=== PATIENT | female | born 1935 | race Caucasian/White ===

== ENCOUNTER 2020-04-23 13:11 | Inpatient (IN) | payer MEDICARE ==
[~2020-04-23] VITALS: Ht 157.5 cm; Wt 68.3 kg
[~2020-04-23 13:11] MED LIST: ECOT81TA5 PO; FOLI1TAB11 PO; LABE100T4 PO; LEVO100T5 PO; LORT5TAB PO; LOSA100T50 PO; MECL1CHW PO; NABU-53 PO; TIZA2CAP PO
[2020-04-23] MEDS ORDERED: TRAM50TA2 PO (13:40)
[2020-04-23] MEDS ORDERED: AMLO1TAB24 PO (13:40)
[2020-04-23] MEDS ORDERED: TIZA4TAB4 PO (13:40)
[2020-04-23] MEDS ORDERED: PRED20TA PO (13:40)
[2020-04-23] MEDS ORDERED: fentaNYL 100 MCG/2 ML INJECTION (J3010) IV ONE (14:55)
[2020-04-23 15:07] LABS: BASO % 0.2 % (0.0-1.0); EOS % 0.1 % (0.0-3.0); HEMATOCRIT 34.3 % (36.0-47.0); HEMOGLOBIN 11.6 g/dl (12.0-15.5); LYMPH % 7.8 % (24.0-44.0); MEAN CORPUSCULAR HEMOGLOBIN 33.6 pg (27.0-33.0); MEAN CORPUSCULAR HGB CONC 33.8 g/dl (32.0-36.5); MEAN CORPUSCULAR VOLUME 99.4 fl (80.0-96.0); MONO # 0.5 10^3/uL (0.0-0.8); MONO % 3.7 % (2.0-8.0); NEUTROPHILS # 11.2 10^3/uL (1.5-8.5); PLATELET COUNT, AUTOMATED 392 10^3/uL (150-450); RED BLOOD COUNT 3.45 10^6/uL (4.00-5.40); WHITE BLOOD COUNT 12.9 10^3/uL (4.0-10.0)
[2020-04-23 15:40] LABS: BLOOD UREA NITROGEN 22 MG/DL (7-18); CALCIUM LEVEL 9.3 MG/DL (8.8-10.2); CARBON DIOXIDE LEVEL 29 MEQ/L (21-32); CHLORIDE LEVEL 95 MEQ/L (98-107); CREATININE FOR GFR 0.67 MG/DL (0.55-1.30); GLOMERULAR FILTRATION RATE > 60.0 (>32); GLUCOSE, FASTING 125 MG/DL (70-100); SODIUM LEVEL 132 MEQ/L (136-145)
--- NOTE | 2020-04-23 17:12 | REP ---
INDICATION: intractable low back pain. COMPARISON: Comparison is made with a portable intraoperative radiograph of the lumbar spine from January 20, 2015.. TECHNIQUE: Sagittal and axial T1 and T2-weighted scans are acquired in the usual fashion with and without fat saturation. Sequences include spin echo, turbo spin-echo, and STIR imaging sequences. FINDINGS: Lumbar vertebral body heights are preserved. No lumbar vertebral fracture or collapse is seen. The tip of the conus medullaris is normal in position and appearance at T12-L1. No extra vertebral abnormality is observed. There is abnormal signal intensity in the right sacrum superiorly and in the right iliac crest consistent with insufficiency fractures. No bony destructive lesion is seen. Sagittal images demonstrate a healing nondisplaced fracture of the upper portion of the 2nd sacral segment in the midline as well. There is mild presacral edema associated with this. There are degenerative spondylosis changes in the lumbar spine moderate in degree. There is a degenerative L4-5 spondylolisthesis, grade 1, 3 mm. Alignment is otherwise normal. At L1-2, there is degenerative disc disease and diffuse disc bulging is noted. Canal size is borderline. Mild facet and ligamentum flavum hypertrophy is present. At L2-3, there is moderate central canal stenosis due to disc bulging diffusely, ligamentum flavum and facet hypertrophy. The midline AP dimension of the thecal sac at L2-3 is 4.9 mm. CSF signal is effaced from the thecal sac at this level on T2 weighted axial images. There is mild neural foraminal encroachment from disc bulging and facet hypertrophy bilaterally. At L3-4, a right-sided partial laminectomy defect is seen. There is diffuse disc bulging. No central canal stenosis is noted. There is mild bilateral neural foraminal encroachment from disc bulging and facet hypertrophy. Ligamentum flavum hypertrophy is noted on the left at L3-4. At L4-5, in addition to the above-mentioned grade 1 3 mm spondylolisthesis, there is diffuse disc bulging and I suspect a partial right laminectomy defect. Canal size is borderline. There is ligamentum flavum hypertrophy on the left and moderate left-sided facet hypertrophy is present. Neural foramina appear adequate. At L5-S1, there is facet hypertrophy and minimal central disc bulging. No other finding. There is a bone island on the left side of the L5 vertebral body. IMPRESSION: There are advanced degenerative spondylosis changes. Post laminectomy changes are noted on the right at L3-4 and L4-5. There is a moderate degree of central canal stenosis at L2-3. Neural foraminal narrowing is noted as above. These changes appear to be chronic. In addition, there is subacute finding of right sacral and right iliac insufficiency fractures with associated edema. There is a 2nd sacral fracture in the midline as well. <Electronically signed by Henrry Gerber > 04/23/20 [id number]
[2020-04-23] MEDS ORDERED: NORCO, ANEXSIA 5/325MG TABLET (HYDROcodone/ACETAMINOPHEN) PO PRN (18:00)
[2020-04-23] MEDS ORDERED: MOM 30ML SUSPENSION UDC PO PRN (18:00)
[2020-04-23] MEDS ORDERED: HYDR-3713 PO (18:01)
[2020-04-23] MEDS ORDERED: MECL-86 PO (18:01)
--- NOTE | 2020-04-23 18:26 | HPEPDOC ---
General Date of Admission 04/23/2020 Date of Service: Apr 23, 2020 Attending Physician: SUDHEER ALFONSO MD Chief Complaint The patient is a 85-year-old female admitted with a reason for visit of Back Pain. Source: Patient Exam Limitations: No limitations Timing/Duration: Getting worse Severity: Severe Associated Symptoms: Other (back pain) History of Present Illness 85 yo W with a history of severe degenerative disk disease s/p prior laminectomies, HTN, vertigo, hypothyroidism and chronic back pain who presented to the ED reporting 2 weeks of worsening lower back pain that started in her central lower back and has gotten worse to include R buttock pain now and PCP had attempted to treat it as sciatica with prednisone/tizanidine/norco without relief. In the ED she was hypertensive to 170s/80s, otherwise in no acute distress when supine at rest, breathing comfortably on room air. ED evaluation was notable for MRI of L spine that showed a subacute R sacral and R iliac insufficiency fracture with associated edema and a second sacral fracture in the midline as well. It also revealed advanced degenerative spondylosis changes, post laminectomy changes on the R at L3-4 and L4-5 with neural foraminal narrowing WBC was 12.9, keeping in mind recent prednisone, Hgb 11,6, platelets 392, Na 132, K 4, Cr 0.67 and TSH 1.36. Orthopedics was called by the ED and recommended medicine admission for pain control and PT evaluation and will consult for management of fractures. Home Medications Scheduled Amlodipine Besylate (Amlodipine Besylate) 5 Mg Tablet, 5 MG PO QHS, (Reported) Aspirin (Ecotrin) 81 Mg Tab, 81 MG PO DAILY, (Reported) Labetalol HCl (Labetalol HCl) 100 Mg Tab, 100 MG PO BID, (Reported) Levothyroxine Sodium (Levothyroxine Sodium) 100 Mcg Tab, 100 MCG PO DAILY, (Reported) Losartan Potassium (Losartan Potassium) 100 Mg Tab, 50 MG PO BID, (Reported) Nabumetone (Nabumetone) 750 Mg Tab, 750 MG PO BID, (Reported) Prednisone (Prednisone) 20 Mg Tablet, 40 MG PO DAILY, (Reported) Scheduled PRN Hydrocodone/Acetaminophen (Hydrocodone-Acetamin 5-325 mg) 1 Each Tablet, 1 TAB PO Q6H PRN for PAIN, (Reported) Meclizine HCl (Meclizine HCl) 25 Mg Tablet, 25 MG PO TID PRN for DIZZINESS, (Reported) Tizanidine HCl (Tizanidine HCl) 4 Mg Tablet, 4 MG PO Q4H PRN for MUSCLE SPASMS, (Reported) Tramadol HCl (Tramadol HCl) 50 Mg Tablet, 50 MG PO QID PRN for PAIN, (Reported) Allergies Coded Allergies: TAPE (Verified Allergy, Intermediate, SURGICAL TAPE - RASH, 01/17/15) Tfurxij-Bzo-Iya Reductase Inhibitor (Verified Adverse Reaction, Unknown, 04/23/20) muscle aches Past Medical History Medical History history of severe degenerative disk disease s/p prior laminectomies, HTN, joss tigo, hypothyroidism and chronic back pain. Surgical History prior right mastectomy lumbar laminectomies hernia repair hysterectomy Family History Significant Family History: No pertinent family hx Social History * Smoker: Denies Alcohol: Denies Drugs: denies Recent Travel/Sick Contacts: Denies: Recent travel, Recent sick contacts Psychosocial History: No pertinent psych hx Lives alone at home, daughters live close by, have been coming around more often recently due to the mobility challenges and pain. A-FIB/CHADSVASC A-FIB History Current/History of A-Fib/PAF?: No Current PO Anticoag Therapy: No Age/Risk Factor Scoring CHADSVASC: CHADSVASC Response (Comments) Value Age Risk Factor Age >/= 75 years old 2 Gender Risk Factor Female 1 Hx of CHF No 0 Hx of HTN Yes 1 Hx of Stroke/TIA/or VTE No 0 Hx of Diabetes No 0 Hx of Vascular Disease No 0 Total 4 Treatment Treatment ordered: NONE Reason Anticoagulant not given: Not indicated/[id number] Review of Systems Constitutional: Denies: Chills, Fever, Night Sweats Eyes: Denies: Pain, Vision change ENT: Denies: Head Aches, Ear Pain, Dysphagia Skin: Denies: Rash, Lesions, Breakdown Pulmonary: Denies: Dyspnea, Cough Cardiovascular: Denies: Chest Pain, Palpitations, Orthopnea, Paroxysmal Noc. Dyspnea, Lt Headedness Gastrointestinal: Denies: Nausea, Vomiting, Abdominal Pain, Diarrhea Genitourinary: Denies: Dysuria, Frequency, Incontinence, Retention Hematologic: Denies: Bruising, Bleeding Excessively Endocrine: Denies: Polydipsia, Polyphagia, Polyuria, Heat Intolerance, Cold Intolerance, Other Endocrine Sx Musculoskeletal: Reports: Back Pain (Lower back pain and now down the R buttock and R leg feels pain when she moves) Neurological: Denies: Weakness, Numbness, Change in speech, Confusion Psych: Reports: Mood Normal; Denies: Depression, Memory Issues Physical Examination General Exam: Positive: Alert, No Acute Distress Eye Exam: Positive: PERRLA, Conjunctiva & lids normal, EOMI; Negative: Sclera icteric ENT Exam: Positive: Atraumatic, Mucous membr. moist/pink, Pharynx Normal Neck Exam: Positive: Supple; Negative: JVD, thyromegaly Chest Exam: Positive: Clear to auscultation, Normal air movement Heart Exam: Positive: Rate Normal, Regular Rhythm, Normal S1, Normal S2; Negative: Murmurs, Rubs Abdomen Exam: Positive: Normal bowel sounds, Soft; Negative: Tenderness, Hepatospenomegaly Extremity Exam: Positive: Normal pulses; Negative: Clubbing, Cyanosis, Edema Skin Exam: Positive: Nl turgor and temperature; Negative: Breakdown, Lesion Neuro Exam: Positive: Normal Speech, Sensation Intact, Cranial Nerves 3-12 NL; Negative: Strength at 5/5 X4 ext (LLE 5/5 ,RLE is 5/5 at distally but exam is limited proximally due to back pain) Psych Exam: Positive: Mental status NL, Mood NL, Oriented x 3 Vital Signs Vital Signs Date Time Temp Pulse Resp B/P (MAP) Pulse Ox O2 Delivery O2 Flow Rate FiO2 04/23/20 17:51 81 96 04/23/20 17:50 16 170/80 (110) Room Air 04/23/20 16:51 98.2 Laboratory Data Labs 24H Laboratory Tests 2 04/23/20 14:42: Anion Gap 8, Glomerular Filtration Rate > 60.0, Calcium Level 9.3, Thyroid Stimulating Hormone (TSH) 1.360 04/23/20 14:48: Immature Granulocyte % (Auto) 1.2, Neutrophils (%) (Auto) 87.0H, Lymphocytes (%) (Auto) 7.8L, Monocytes (%) (Auto) 3.7, Eosinophils (%) (Auto) 0.1, Basophils (%) (Auto) 0.2, Neutrophils # (Auto) 11.2H, Lymphocytes # (Auto) 1.0L, Monocytes # (Auto) 0.5, Eosinophils # (Auto) 0.0, Basophils # (Auto) 0.0, Nucleated Red Blood Cells % (auto) 0.0 CBC/BMP Laboratory Tests 04/23/20 14:42 04/23/20 14:48 Assessment/Plan 85 yo W with a history of severe degenerative disk disease s/p prior laminectomies, HTN, vertigo, hypothyroidism and chronic back pain who presented to the ED reporting 2 weeks of worsening lower back pain that started in her central lower back and has gotten worse to include R buttock and found to have subacute R sacral and R iliac insufficiency fractures with associated edema and a second sacral fracture in the midline as well being admitted for pain control, ortho evaluation and safe discharge planning. PlanL Subacute R sacral and R iliac insufficiency fracture with associated edema and a second sacral fracture in the midline as well. -Bed rest until recs from orthopedics for PT/OT -Ortho consult -pain control with 1 norco Q4HP for moderate pain and 2 norco for severe pain Q8HP HTN: -continue home meds Hypothyroidism: -continue home synthroid Vertigo: -continue home meclizine DVT ppx: lovenox Plan / VTE VTE Prophylaxis Ordered?: Yes SUDHEER ALFONSO MD Apr 23, 2020 18:26
[2020-04-23] MEDS: NORCO, ANEXSIA 5/325MG TABLET (HYDROcodone/ACETAMINOPHEN) PO PRN (18:39)
[2020-04-23 18:50] LABS: RSV AMPLIFICATION NEGATIVE (NEGATIVE)
--- NOTE | 2020-04-23 19:44 | HPEPDOC ---
General Date of Admission Apr 23, 2020 at 18:00 Date of Service: Apr 23, 2020 Chief Complaint The patient is a 85-year-old female admitted with a reason for visit of Intractable Low Back Pain. History of Present Illness This 85-year-old female admitted 2 days history of increasing right lumbar spine pain. She also feels like she has some pain in the right knee. There is no obvious numbness or tingling that she reports. She still ambulatory. She normally walks with a walker. No change in her normal bowel or bladder habits. She urinates frequently but no loss of control. No perianal numbness. No weakness in her legs. No constitutional symptoms that she reports. She did have lumbar spine surgery 5 years ago but no difficulties related that. She is uncertain who her surgeon was but this was in [place] Home Medications Scheduled Amlodipine Besylate (Amlodipine Besylate) 5 Mg Tablet, 5 MG PO QHS, (Reported) Aspirin (Ecotrin) 81 Mg Tab, 81 MG PO DAILY, (Reported) Labetalol HCl (Labetalol HCl) 100 Mg Tab, 100 MG PO BID, (Reported) Levothyroxine Sodium (Levothyroxine Sodium) 100 Mcg Tab, 100 MCG PO DAILY, (Reported) Losartan Potassium (Losartan Potassium) 100 Mg Tab, 50 MG PO BID, (Reported) Nabumetone (Nabumetone) 750 Mg Tab, 750 MG PO BID, (Reported) Prednisone (Prednisone) 20 Mg Tablet, 40 MG PO DAILY, (Reported) Scheduled PRN Hydrocodone/Acetaminophen (Hydrocodone-Acetamin 5-325 mg) 1 Each Tablet, 1 TAB PO Q6H PRN for PAIN, (Reported) Meclizine HCl (Meclizine HCl) 25 Mg Tablet, 25 MG PO TID PRN for DIZZINESS, (Reported) Tizanidine HCl (Tizanidine HCl) 4 Mg Tablet, 4 MG PO Q4H PRN for MUSCLE SPASMS, (Reported) Tramadol HCl (Tramadol HCl) 50 Mg Tablet, 50 MG PO QID PRN for PAIN, (Reported) Allergies Coded Allergies: TAPE (Verified Allergy, Intermediate, SURGICAL TAPE - RASH, 01/17/15) Zukbsot-Nlo-Oya Reductase Inhibitor (Verified Adverse Reaction, Unknown, 04/23/20) muscle aches Past Medical History Medical History For full past medical history please see the hospitalist note A-FIB/CHADSVASC A-FIB History Current/History of A-Fib/PAF?: No Current PO Anticoag Therapy: Yes Physical Examination Other physical findings General Appearance: Well-nourished, well developed in no acute distress Orientation: Oriented to person, place and time. Mood / Affect: Calm Gait: Not assessed Coordination: normal Normal sensation and motor function to superficial and deep peroneal, tibial, anderson ral and saphenous nerves. Feet are warm and well perfused. Strong pedal pulses. Normal sensation 2/2 and strong motor function 5/5 from L2-S1. No perianal numbness. No steps or gallops the lumbar spine or at the sacrum or thoracic spine Incision appears normal No increased tone lower extremities Straight leg raise testing simply causes right knee pain on the right side negative on the left side. Some mild crepitus with knee range of motion testing. No pain of the hip with hip range of motion testing. Vital Signs Vital Signs Date Time Temp Pulse Resp B/P (MAP) Pulse Ox O2 Delivery O2 Flow Rate FiO2 04/23/20 18:39 16 04/23/20 17:51 81 96 04/23/20 17:50 170/80 (110) Room Air 04/23/20 16:51 98.2 Laboratory Data Labs 24H Laboratory Tests 2 04/23/20 14:42: Anion Gap 8, Glomerular Filtration Rate > 60.0, Calcium Level 9.3, Thyroid Stimulating Hormone (TSH) 1.360 04/23/20 14:48: Immature Granulocyte % (Auto) 1.2, Neutrophils (%) (Auto) 87.0H, Lymphocytes (%) (Auto) 7.8L, Monocytes (%) (Auto) 3.7, Eosinophils (%) (Auto) 0.1, Basophils (%) (Auto) 0.2, Neutrophils # (Auto) 11.2H, Lymphocytes # (Auto) 1.0L, Monocytes # (Auto) 0.5, Eosinophils # (Auto) 0.0, Basophils # (Auto) 0.0, Nucleated Red Blood Cells % (auto) 0.0 04/23/20 18:05: Coronavirus (COVID-19)(PCR) NEGATIVE, Influenza Type A (RT-PCR) NEGATIVE, Influenza Type B (RT-PCR) NEGATIVE, Respiratory Syncytial Virus (PCR) NEGATIVE CBC/BMP Laboratory Tests 04/23/20 14:42 04/23/20 14:48 Date of Service The patient was seen on 04/23/20. Assessment/Plan This 85-year-old female likely has some pain from a sacral insufficiency fracture as well as possibly increased pain from a pre-existing right-sided lumb ar radiculopathy. There is no acute role for surgical intervention in this case. I recommend pain management with the hospitalist service in conjunction with the pain service and follow up with a spine surgeon on an outpatient basis. I will not follow the patient while in hospital. I recommended weightbearing as tolerated mobilization as tolerated with physical therapy and occupational therapy departments and a walker as needed. Plan / VTE VTE Prophylaxis Ordered?: Yes Text Note Date of Service The patient was seen on 04/23/20. NOTE There are advanced degenerative spondylosis changes. Post laminectomy changes are noted on the right at L3-4 and L4-5. There is a moderate degree of central canal stenosis at L2-3. Neural foraminal narrowing is noted as above. These changes appear to be chronic. In addition, there is subacute finding of right sacral and right iliac insufficiency fractures with associated edema. There is a 2nd sacral fracture in the midline as well. MARSHA WARREN MD Apr 23, 2020 19:44
[2020-04-23] MEDS ORDERED: LABETALOL 100MG TAB PO ONE (19:50)
[2020-04-23] MEDS ORDERED: MORPHINE 10 MG/ML 1ML VIAL (J2270) IV ONE (19:50)
[2020-04-23] MEDS ORDERED: cloNIDine 0.1MG TABLET PO ONE (19:50)
[2020-04-23] MEDS: NITROGLYCERIN 2% OINT 1 GM *U/D* PKT TOP SCH ×2 (20:14→23:50)
[2020-04-23 20:50] VITALS: BP 149/81
[2020-04-23] MEDS: LOSARTAN 50MG TABLET PO SCH (21:27)
[2020-04-23] MEDS: MECLIZINE 25 MG TABLET PO SCH (21:27)
[2020-04-23 23:42] VITALS: BP 109/68
[2020-04-23] MEDS: ACETAMINOPHEN TAB 650MG DOSE (2X325MG) PO PRN (23:43)
[2020-04-24] MEDS: NITROGLYCERIN 2% OINT 1 GM *U/D* PKT TOP SCH ×2 (03:34→07:50)
[2020-04-24] MEDS: NORCO, ANEXSIA 5/325MG TABLET (HYDROcodone/ACETAMINOPHEN) PO PRN ×2 (04:44→14:49)
[2020-04-24] MEDS: LEVOTHYROXINE 100MCG TABLET (0.1MG) PO SCH (05:26)
[2020-04-24 05:40] LABS: HEMOGLOBIN 11.2 g/dl (12.0-15.5); MEAN CORPUSCULAR HEMOGLOBIN 33.9 pg (27.0-33.0); MEAN CORPUSCULAR HGB CONC 33.9 g/dl (32.0-36.5); PLATELET COUNT, AUTOMATED 397 10^3/uL (150-450); WHITE BLOOD COUNT 13.2 10^3/uL (4.0-10.0)
[2020-04-24 06:00] VITALS: BP 148/82
[2020-04-24 06:00] LABS: CALCIUM LEVEL 8.4 MG/DL (8.8-10.2); CREATININE FOR GFR 0.99 MG/DL (0.55-1.30); GLOMERULAR FILTRATION RATE 56.8 (>32); POTASSIUM SERUM 3.4 MEQ/L (3.5-5.1)
[2020-04-24] MEDS ORDERED: MORPHINE 4 MG/ML 1ML VIAL/SYRINGE (J2270) IV PRN (07:25)
[2020-04-24] MEDS: LOSARTAN 50MG TABLET PO SCH ×2 (08:48→20:36)
[2020-04-24] MEDS: MECLIZINE 25 MG TABLET PO SCH ×3 (08:48→20:34)
[2020-04-24] MEDS: amLODIPine 5 MG TAB PO SCH (08:49)
[2020-04-24] MEDS: LABETALOL 100MG TAB PO SCH ×2 (08:49→20:37)
[2020-04-24] MEDS: ASPIRIN 81 MG CHEW TABLET PO SCH (08:50)
[2020-04-24] MEDS: ENOXAPARIN 40MG/0.4ML SYRINGE (J1650 PER 10MG) SC SCH (08:51)
--- NOTE | 2020-04-24 12:10 | IPNPDOC ---
Text Note Date of Service The patient was seen on 04/24/20. NOTE Subjective: -Severe pain overnight required morphine IV once -HTN overnight required labetalol and clonidine. Was likely also 2/2 pain. -Pain is present this morning but improved from last night. It is worst with ambulation Objective: General: Alert, No Acute Distress Eye: PERRLA, Conjunctiva & lids normal, EOMI, anicteric ENT: Atraumatic, Mucous membr. moist/pink, Pharynx Normal Neck: Supple, no JVD or palpable thyromegaly Chest: Clear to auscultation, Normal air movement Heart: Rate Normal, Regular Rhythm, Normal S1, Normal S2 without noted murmurs or gallops Abdomen: Normal bowel sounds,soft, NTND Extremities: Normal pulses, no edema Skin: Nl turgor and temperature, no breakdown or lesions noted Neuro: Normal Speech, Sensation Intact, Cranial Nerves 3-12 NL, lower back and R buttock pain with RLE straight leg raise, LLE 5/5 , RLE is otherwise 5/5 as well but limited by pain. Psych: Mental status NL, Mood NL, Oriented x 3 Laboratory Data: reviewed Assessment: 85 yo W with a history of severe degenerative disk disease s/p prior laminectomies, HTN, vertigo, hypothyroidism, lumbar radiculopathy w/ chronic back pain who presented to the ED reporting 2 weeks of worsening lower back pain that started in her central lower back and has gotten worse to include R buttock and found to have subacute R sacral and R iliac insufficiency fractures with associated edema and a second sacral fracture in the midline as well being admitted for pain control, ortho evaluation and safe discharge planning with ortho recommending pain management with pain service onboard, PT/OT and outpatient follow up with spine surgery. Plan: Subacute R sacral and R iliac insufficiency fracture with associated edema and a second sacral fracture in the midline as well. -Bed rest until recs from orthopedics for PT/OT -Ortho consulted --> No surgical intervention indicated at this time, recommended weightbearing as tolerated mobilization as tolerated with physical therapy and occupational therapy departments and a walker as needed as well evaluation by the pain service. -pain control with 1 norco Q4HP for moderate pain and 2 norco for severe pain Q8HP. Will also add morphine 4mg IV Q6HP for severe breakthrough pain. -pain clinic to assess her this afternoon, consulted. HTN: -continue home meds Hypothyroidism: -continue home synthroid Vertigo: -continue home meclizine DVT ppx: lovenox VS,Fishbone, I+O VS, Fishbone, I+O Laboratory Tests 04/23/20 14:42 04/23/20 14:48 04/24/20 05:12 04/24/20 05:13 Vital Signs Date Time Temp Pulse Resp B/P (MAP) Pulse Ox O2 Delivery O2 Flow Rate FiO2 04/24/20 06:00 97.6 72 17 148/82 (104) 98 Room Air I&O- Last 24 Hours up to 6 AM 04/24/20 06:00 Intake Total 150 ml Output Total 450 ml Balance -300 ml SUDHEER ALFONSO MD Apr 24, 2020 07:34
[2020-04-24 14:00] VITALS: BP 120/70
[2020-04-24 22:00] VITALS: BP 149/73
[2020-04-25] MEDS: ACETAMINOPHEN TAB 650MG DOSE (2X325MG) PO PRN (04:59)
[2020-04-25] MEDS: LEVOTHYROXINE 100MCG TABLET (0.1MG) PO SCH (04:59)
[2020-04-25 06:00] VITALS: BP 160/78
[2020-04-25 06:42] LABS: HEMATOCRIT 35.3 % (36.0-47.0); HEMOGLOBIN 11.7 g/dl (12.0-15.5); MEAN CORPUSCULAR HGB CONC 33.1 g/dl (32.0-36.5); MEAN CORPUSCULAR VOLUME 99.4 fl (80.0-96.0); PLATELET COUNT, AUTOMATED 433 10^3/uL (150-450); RED BLOOD COUNT 3.55 10^6/uL (4.00-5.40); WHITE BLOOD COUNT 12.4 10^3/uL (4.0-10.0)
[2020-04-25 07:02] LABS: BLOOD UREA NITROGEN 22 MG/DL (7-18); CALCIUM LEVEL 8.8 MG/DL (8.8-10.2); CARBON DIOXIDE LEVEL 28 MEQ/L (21-32); CHLORIDE LEVEL 99 MEQ/L (98-107); CREATININE FOR GFR 0.64 MG/DL (0.55-1.30); GLOMERULAR FILTRATION RATE > 60.0 (>32); GLUCOSE, FASTING 97 MG/DL (70-100); POTASSIUM SERUM 3.8 MEQ/L (3.5-5.1); SODIUM LEVEL 134 MEQ/L (136-145)
[2020-04-25 08:54] VITALS: BP 160/78
[2020-04-25] MEDS: ENOXAPARIN 40MG/0.4ML SYRINGE (J1650 PER 10MG) SC SCH (08:54)
[2020-04-25] MEDS: LOSARTAN 50MG TABLET PO SCH (08:54)
[2020-04-25] MEDS: LABETALOL 100MG TAB PO SCH (08:54)
[2020-04-25] MEDS: MECLIZINE 25 MG TABLET PO SCH (08:54)
[2020-04-25] MEDS: ASPIRIN 81 MG CHEW TABLET PO SCH (08:54)
[2020-04-25] MEDS: amLODIPine 5 MG TAB PO SCH (08:54)
[2020-04-25] MEDS ORDERED: NABUMETONE 750 MG PO SCH (09:00)
--- NOTE | 2020-04-26 00:42 | DS.PDOC ---
Discharge Summary General Date of Admission Apr 23, 2020 at 18:00 Date of Discharge 04/25/20 Discharge Summary PROCEDURES PERFORMED DURING STAY: [None]. DISCHARGE DIAGNOSES: Right Sacral superior vertebral fracture and right iliac crest insufficiency fracture Second Sacral vertebral fracture. 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 HOSPITAL COURSE: 85 yo W with a history of severe degenerative disc disease s/p prior laminectomies, HTN, vertigo, hypothyroidism, lumbar radiculopathy w/ chronic back pain who presented to the ED reporting 2 weeks of worsening lower back pain that started in her central lower back and has gotten worse to include R buttock and found to have subacute R sacral and R iliac insufficiency fractures with associated edema and a second sacral fracture in the midline as well being admitted for pain control, ortho evaluation and safe discharge planning with ortho recommending pain management with pain service onboard, PT/OT and outpatient follow up with spine surgery. Subacute R sacral and R iliac insufficiency fracture with associated edema and a second sacral fracture in the midline as well. Ortho consulted --> No surgical intervention indicated at this time, recommended weightbearing as tolerated mobilization as tolerated with physical therapy and occupational therapy departments and a walker as needed as well evaluation by the pain service. pain control with norco and tramadol pain clinic referral on discharge Continue PT/OT HTN: continue home meds Hypothyroidism: continue home synthroid Vertigo: continue home meclizine Chronic Low back pain with right lumber radiculopathy and spinal stenosis. h/o laminectomy in the past referral to spinal surgeon as outpatient DISCHARGE MEDICATIONS: Please see below. ALLERGIES: Please see below. PHYSICAL EXAMINATION ON DISCHARGE: VITAL SIGNS: Please see below. General: Alert, No Acute Distress Eye: PERRLA, Conjunctiva & lids normal, EOMI, anicteric ENT: Atraumatic, Mucous membr. moist/pink, Pharynx Normal Neck: Supple, no JVD or palpable thyromegaly Chest: Clear to auscultation, Normal air movement Heart: Rate Normal, Regular Rhythm, Normal S1, Normal S2 without noted murmurs or gallops Abdomen: Normal bowel sounds,soft, NTND Extremities: Normal pulses, no edema Skin: Nl turgor and temperature, no breakdown or lesions noted Neuro: Normal Speech, Sensation Intact, Cranial Nerves 3-12 NL, lower back and R buttock pain with RLE straight leg raise, LLE 5/5 , RLE is otherwise 5/5 as well but limited by pain. Psych: Mental status NL, Mood NL, Oriented x 3 LABORATORY DATA: Please see below. IMAGING: Lumber MRI: There is abnormal signal intensity in the right sacrum superiorly and in the r ight iliac crest consistent with insufficiency fractures. No bony destructive lesion is seen. Sagittal images demonstrate a healing nondisplaced fracture of the upper portion of the 2nd sacral segment in the midline as well. There is mild presacral edema associated with this. Impression: There are advanced degenerative spondylosis changes. Post laminectomy changes are noted on the right at L3-4 and L4-5. There is a moderate degree of central canal stenosis at L2-3. Neural foraminal narrowing is noted as above. These changes appear to be chronic. In addition, there is subacute finding of right sacral and right iliac insufficiency fractures with associated edema. There is a 2nd sacral fracture in the midline as well. ACTIVITY: [As tolerated]. DIET: As tolerated DISPOSITION: 70 Xfer Other. DISCHARGE INSTRUCTIONS: Pain clinic referral after discharge from Rehab. Spinal surgeon referral as outpatient. DISCHARGE CONDITION: [Stable]. TIME SPENT ON DISCHARGE: 35 minutes. Vital Signs/I&Os Vital Signs Date Time Temp Pulse Resp B/P (MAP) Pulse Ox O2 Delivery O2 Flow Rate FiO2 04/25/20 08:54 74 160/78 04/25/20 06:00 98.0 18 96 Room Air I&O- Last 24 Hours up to 6 AM 04/25/20 07:00 Intake Total 1590 ml Output Total 1000 ml Balance 590 ml Laboratory Data Labs 24H Laboratory Tests 2 04/25/20 05:42: Nucleated Red Blood Cells % (auto) 0.0, Anion Gap 7L, Glomerular Filtration Rate > 60.0, Calcium Level 8.8 CBC/BMP Laboratory Tests 04/25/20 05:42 Discharge Medications Scheduled Amlodipine Besylate (Amlodipine Besylate) 5 Mg Tablet, 5 MG PO QHS, (Reported) Aspirin (Ecotrin) 81 Mg Tab, 81 MG PO DAILY, (Reported) Labetalol HCl (Labetalol HCl) 100 Mg Tab, 100 MG PO BID, (Reported) Levothyroxine Sodium (Levothyroxine Sodium) 100 Mcg Tab, 100 MCG PO DAILY, ( Reported) Losartan Potassium (Losartan Potassium) 100 Mg Tab, 50 MG PO BID, (Reported) Nabumetone (Nabumetone) 750 Mg Tab, 750 MG PO BID, (Reported) Prednisone (Prednisone) 20 Mg Tablet, 40 MG PO DAILY, (Reported) Scheduled PRN Hydrocodone/Acetaminophen (Hydrocodone-Acetamin 5-325 mg) 1 Each Tablet, 1 TAB PO Q6H PRN for PAIN, (Reported) Meclizine HCl (Meclizine HCl) 25 Mg Tablet, 25 MG PO TID PRN for DIZZINESS, (Reported) Tizanidine HCl (Tizanidine HCl) 4 Mg Tablet, 4 MG PO Q4H PRN for MUSCLE SPASMS, (Reported) Tramadol HCl (Tramadol HCl) 50 Mg Tablet, 50 MG PO QID PRN for PAIN, (Reported) Allergies Coded Allergies: TAPE (Verified Allergy, Intermediate, SURGICAL TAPE - RASH, 01/17/15) Mngejpn-Nkg-Mtj Reductase Inhibitor (Verified Adverse Reaction, Unknown, 04/23/20) muscle aches DEMETRIUS ALEXANDRE MD Apr 26, 2020 00:42
== END 2020-04-25 14:30 | disposition home or self-care (01) | DRG 544 ==
LOC: M ED 13:11 → M ED INP 18:00 → ENRESERV 19:13 → M MS5PR 20:16 → M ED INP 20:32 → M MS5PR 20:54
PROVIDERS: ADMIT Internal Medicine; ATTEND Internal Medicine Nephrology
DX: M84.454A Pathological fracture, pelvis, initial encounter for fracture (principal); M54.16 Radiculopathy, lumbar region; I10 Essential (primary) hypertension; R42 Dizziness and giddiness; Z79.899 Other long term (current) drug therapy; Z79.82 Long term (current) use of aspirin; Z88.8 Allergy status to other drugs, medicaments and biological substances; E03.9 Hypothyroidism, unspecified

== ENCOUNTER 2020-04-25 10:47 | Inpatient (IN) | payer MEDICARE ==
[~2020-04-25] VITALS: Ht 157.5 cm; Wt 69.5 kg
[~2020-04-25 10:47] MED LIST changes: +AMLO1TAB24 PO; +HYDR-3713 PO; +MECL-86 PO; +PRED20TA PO; +TIZA4TAB4 PO; +TRAM50TA2 PO
[2020-04-25 14:20] VITALS: BP 150/75
[2020-04-25] MEDS ORDERED: traMADol 50 MG TAB PO PRN (16:30)
[2020-04-25] MEDS ORDERED: PILL CUTTER 1 EACH XX PRN (16:55)
[2020-04-25 20:00] VITALS: BP 160/80
[2020-04-25] MEDS: SENNA 8.6 MG TAB (SENOKOT) PO SCH (20:16)
[2020-04-25] MEDS: DOCUSATE SODIUM 100MG CAPSULE PO SCH (20:16)
[2020-04-25] MEDS: MECLIZINE 25 MG TABLET PO SCH (20:16)
[2020-04-25] MEDS: ACETAMINOPHEN 500 MG TAB PO SCH (20:16)
[2020-04-25] MEDS: LABETALOL 100MG TAB PO SCH (20:17)
[2020-04-25] MEDS: LOSARTAN 50MG TABLET PO SCH (20:17)
[2020-04-25] MEDS: NABUMETONE 750 MG PO SCH (20:17)
[2020-04-25] MEDS: REMEDY PHYTOPLEX Z-GUARD PASTE 113GM TUBE (FROM STOREROOM PRODUCT) TOP SCH (20:19)
[2020-04-26] MEDS: LEVOTHYROXINE 100MCG TABLET (0.1MG) PO SCH (05:55)
[2020-04-26 06:00] VITALS: BP 190/93
[2020-04-26 06:03] LABS: BASO # 0.1 10^3/uL (0.0-0.2); BASO % 0.5 % (0.0-1.0); EOS # 0.3 10^3/uL (0.0-0.5); HEMATOCRIT 33.9 % (36.0-47.0); HEMOGLOBIN 11.6 g/dl (12.0-15.5); LYMPH # 2.5 10^3/uL (1.5-5.0); MEAN CORPUSCULAR HEMOGLOBIN 34.3 pg (27.0-33.0); MEAN CORPUSCULAR HGB CONC 34.2 g/dl (32.0-36.5); MEAN CORPUSCULAR VOLUME 100.3 fl (80.0-96.0); MONO # 1.2 10^3/uL (0.0-0.8); MONO % 10.3 % (2.0-8.0); NEUTROPHILS # 6.9 10^3/uL (1.5-8.5); NEUTROPHILS % 62.2 % (36.0-66.0); PLATELET COUNT, AUTOMATED 429 10^3/uL (150-450); RED BLOOD COUNT 3.38 10^6/uL (4.00-5.40); WHITE BLOOD COUNT 11.1 10^3/uL (4.0-10.0)
[2020-04-26 06:11] VITALS: BP 182/94
[2020-04-26] MEDS: LOSARTAN 50MG TABLET PO SCH ×2 (06:24→20:55)
[2020-04-26] MEDS: LABETALOL 100MG TAB PO SCH ×2 (06:24→20:55)
[2020-04-26 06:27] LABS: ALT/SGPT 19 U/L (12-78); BILIRUBIN,TOTAL 0.4 MG/DL (0.2-1.0); BLOOD UREA NITROGEN 19 MG/DL (7-18); CALCIUM LEVEL 8.7 MG/DL (8.8-10.2); CARBON DIOXIDE LEVEL 29 MEQ/L (21-32); CHLORIDE LEVEL 101 MEQ/L (98-107); CREATININE FOR GFR 0.62 MG/DL (0.55-1.30); GLOMERULAR FILTRATION RATE > 60.0 (>32); GLUCOSE, FASTING 102 MG/DL (70-100); POTASSIUM SERUM 3.6 MEQ/L (3.5-5.1); SODIUM LEVEL 136 MEQ/L (136-145); TOTAL PROTEIN 6.6 GM/DL (6.4-8.2)
[2020-04-26] MEDS ORDERED: amLODIPine 5 MG TAB PO ONE (06:35)
[2020-04-26] MEDS: amLODIPine 5 MG TAB PO SCH ×2 (06:38→09:20)
[2020-04-26] MEDS ORDERED: predniSONE 20 MG TAB PO SCH (09:00)
[2020-04-26] MEDS: PANTOPRAZOLE 40MG TAB (PROTONIX) PO SCH (09:13)
[2020-04-26] MEDS: DOCUSATE SODIUM 100MG CAPSULE PO SCH ×2 (09:13→20:54)
[2020-04-26] MEDS: ASPIRIN 81MG ENTERIC TABLET PO SCH (09:13)
[2020-04-26] MEDS: ACETAMINOPHEN 500 MG TAB PO SCH ×3 (09:13→20:56)
[2020-04-26] MEDS: ENOXAPARIN 40MG/0.4ML SYRINGE (J1650 PER 10MG) SC SCH (09:14)
[2020-04-26] MEDS: MECLIZINE 25 MG TABLET PO SCH ×3 (09:14→20:55)
[2020-04-26] MEDS: NABUMETONE 750 MG PO SCH ×2 (09:14→20:57)
[2020-04-26] MEDS: REMEDY PHYTOPLEX Z-GUARD PASTE 113GM TUBE (FROM STOREROOM PRODUCT) TOP SCH ×3 (09:15→20:57)
[2020-04-26] MEDS: **hydrALAZINE HCL** 25 MG TAB PO SCH ×3 (09:20→20:55)
[2020-04-26] MEDS ORDERED: traMADol 50 MG TAB PO PRN (10:50)
--- NOTE | 2020-04-26 10:51 | HPEPDOC ---
Bankruptcy Attorney Note DATE OF ADMISSION: 04-25-20 DATE OF SERVICE: 04-26-20 TIME OF ADMISSION: Please refer to physician's admission order. SOURCE OF ADMISSION INFORMATION: [facility] record and patient CHIEF COMPLAINT: sacral fracture HISTORY OF PRESENT ILLNESS: 85F pmh HTN, vertigo, hypothyroidism, chronic low back pain s/p laminectomies being treated for sciatica by her PCP with steroids, muscle relaxants, and norco presented to [facility] ED on 04-23-20 qith difficulty walking and worsening low back and buttock pain. Lumbar MRI was done, showing, There are advanced degenerative spondylosis changes. Post laminectomy changes are noted on the right at L3-4 and L4-5. There is a moderate degree of central canal stenosis at L2-3. Neural foraminal narrowing is noted as above. These changes appear to be chronicsubacute finding of right sacral and right iliac insufficiency fractures with associated edema. There is a 2nd sacral fracture in the midline as well. She was evaluated by orthopedics who recommended follow-up with the outpatient spine surgeon and pain clinic. She had leukocytosis likely due to steroid use, anemia, and elevated blood pressures. She was evaluated by therapy, noted to have impairments in mobility and ADLs and deemed medically appropriate for discharge to ARU on 04-25-20. REVIEW OF SYSTEMS: The following is a completed review of systems and has been reviewed. Review of systems otherwise unremarkable. PAIN: Patient self reports right buttock pain EYES: No recent vision changes EARS, NOSE, & THROAT: No throat pain, or dysphagia, or rhinorrhea CARDIOVASCULAR: Denies chest pain or palpitations PULMONARY: Denies shortness of breath GASTROINTESTINAL: Denies constipation/diarrhea GENITOURINARY:denies dysuria MUSCULOSKELETAL: RLE weakness NEUROLOGICAL:denies tremor or paresthesias HEMATOLOGICAL: denies easy bruising SKIN: denies rash PSYCHIATRIC: Unremarkable All other review of systems found to be negative. PAST MEDICAL HISTORY: as per HPI PAST SURGICAL HISTORY: Right mastectomy, lumbar laminectomies, hernia repair, hysterectomy ALLERGIES: Please see below. MEDICATIONS: Please see below. SOCIAL HISTORY: no etoh/illicit drugs/smoking DIET: low sodium PHYSICAL EXAMINATION: VITAL SIGNS: Please see below. GENERAL: Pleasant and cooperative. No acute distress. HEENT: PERRL. Extraocular movements intact. Clear conjunctiva CARDIOVASCULAR: Regular rate and rhythm. No murmurs, rubs, or gallops LUNGS: Clear to auscultation bilaterally. No wheezes. No rhonchi ABDOMEN: Soft, nontender, nondistended. Positive bowel sounds. Normal active bowel sounds NEUROLOGICAL: Alert and oriented times three. Cranial nerves II through XII grossly intact. Sensation grossly intact EXTREMITIES: 5\5 strength bilateral upper extremities. 4\5 strength right lower extremity. 4/5 strength in left lower extremity. LABORATORY DATA: Please see below. IMAGING: Imaging documentation personally reviewed by record. FUNCTIONAL STATUS: Premorbid: Independent with all activities of daily life as well as mobility On Admission: Min assist-contact guard for bed mobility, functional transfers, toileting, dressing GOALS: Mod-I ambulating household distance, functional transfers, toileting, bathing ASSESSMENT:85-year-old F with past medical history of chronic low back pain s/p laminectomies who presents status post sacral insufficiency fracture PLAN: 1. PT/OT advance mobility and ADLs, strengthen/stretch/maintain ROM all 4 limbs 2. CArdiac- hx of HTN- c/u BP meds, amlodipine and hydralazine added for better control -CAD c/u ASA -medicine consulted to assist in overall management 3. Resp- monitor for infection 4. Rheum- hx of RA on nabumetaone 5. Ortho- recently diagnosed sacral insufficiency fractures, will taper off steroids, c/u tylenol and tramadol prn -f/u pain clinic/spine surgeon 6. Neuro- hx of vertigo c/u meclizine 7. GI ppx- protonix 8. DVT ppx- lovenox 9. Endo- hypothyroidism- c/u synthroid 10. Dispo- tbd POST ADMISSION PHYSICIAN EVALUATION: Medical and functional status: Description of medical status, medical assessment: As above. Rehabilitation diagnosis and current and prior cold morbid medical conditions as above. Risk of complications and plans to mitigate them as above. Description of functional status current status is as above. Prior status as above. Status compared to preadmission: There are no clinically significant differences between the patient's current status and the information described on the preadmission screening document. Treatment plan anticipated: Treatment plan is as described above. Required disciplines including physical therapy, occupational therapy, others as noted above. Intensity of services: 3 hours a day, 6 days a week. Special considerations: There are no specific special or safety considerations that would likely preclude immediate implementation of an intensive rehabilitation program or subsequently influence the plan of care. ATTESTATION: Considering all the information above, it is my best judgment that this patient requires intensive rehabilitation therapy as described above and an inpatient hospital environment due to the complexity of nursing, medical, and rehabilitation needs required by the patient. Furthermore, this patient can reasonably be expected to participate in an benefit from an inpatient rehabi litation stay with an interdisciplinary team approach to the delivery of rehabilitation care under the direction and supervision of rehabilitation physician. PROGNOSIS: good ESTIMATED LENGTH OF STAY:10-14 days. PROJECTED DISCHARGE DESTINATION: Home with family support and any durable medical equipment required to increase functional safety and mobility. TIME SPENT COUNSELING AND COORDINATING INITIAL CARE: Greater than 70 minutes. Vital Signs Vital Sign - Last 24 Hours 04/25/20 04/25/20 04/25/20 04/26/20 14:20 20:00 20:17 06:00 Temp 98.0 97.5 97.8 Pulse 83 81 82 Resp 20 18 19 B/P (MAP) 150/75 (100) 160/80 (106) 160/80 190/93 (125) Pulse Ox 97 94 93 O2 Delivery Room Air Room Air Room Air 04/26/20 04/26/20 04/26/20 04/26/20 06:11 06:24 06:38 09:20 Pulse 82 82 84 B/P (MAP) 182/94 (123) 182/94 182/94 177/82 04/26/20 09:20 B/P (MAP) 177/82 Laboratory Data CBC/BMP Laboratory Tests 04/26/20 05:51 Labs 24H Laboratory Tests 2 04/26/20 05:51: Immature Granulocyte % (Auto) 2.0, Neutrophils (%) (Auto) 62.2, Lymphocytes (%) (Auto) 22.0L, Monocytes (%) (Auto) 10.3H, Eosinophils (%) (Auto) 3.0, Basophils (%) (Auto) 0.5, Neutrophils # (Auto) 6.9, Lymphocytes # (Auto) 2.5, Monocytes # (Auto) 1.2H, Eosinophils # (Auto) 0.3, Basophils # (Auto) 0.1, Nucleated Red Blood Cells % (auto) 0.0, Anion Gap 6L, Glomerular Filtration Rate > 60.0, Calcium Level 8.7L, Total Bilirubin 0.4, Aspartate Amino Transf (AST/SGOT) 10, Alanine Aminotransferase (ALT/SGPT) 19, Alkaline Phosphatase 150H, Total Protein 6.6, Albumin 3.0L, Albumin/Globulin Ratio 0.8L Home Medications Scheduled Amlodipine Besylate (Amlodipine Besylate) 5 Mg Tablet, 5 MG PO QHS, (Reported) Aspirin (Ecotrin) 81 Mg Tab, 81 MG PO DAILY, (Reported) Labetalol HCl (Labetalol HCl) 100 Mg Tab, 100 MG PO BID, (Reported) Levothyroxine Sodium (Levothyroxine Sodium) 100 Mcg Tab, 100 MCG PO DAILY, (Reported) Losartan Potassium (Losartan Potassium) 100 Mg Tab, 50 MG PO BID, (Reported) Nabumetone (Nabumetone) 750 Mg Tab, 750 MG PO BID, (Reported) Prednisone (Prednisone) 20 Mg Tablet, 40 MG PO DAILY, (Reported) Scheduled PRN Hydrocodone/Acetaminophen (Hydrocodone-Acetamin 5-325 mg) 1 Each Tablet, 1 TAB PO Q6H PRN for PAIN, (Reported) Meclizine HCl (Meclizine HCl) 25 Mg Tablet, 25 MG PO TID PRN for DIZZINESS, (Reported) Tizanidine HCl (Tizanidine HCl) 4 Mg Tablet, 4 MG PO Q4H PRN for MUSCLE SPASMS, (Reported) Tramadol HCl (Tramadol HCl) 50 Mg Tablet, 50 MG PO QID PRN for PAIN, (Reported) Allergies Coded Allergies: TAPE (Verified Allergy, Intermediate, SURGICAL TAPE - RASH, 01/17/15) [id number] Reductase Inhibitor (Verified Adverse Reaction, Unknown, ) muscle aches A-FIB/CHADSVASC A-FIB History Current/History of A-Fib/PAF?: No Current PO Anticoag Therapy: No MELANIE NUNO MD Apr 26, 2020 10:51
[2020-04-26] MEDS: traMADol 50 MG TAB PO SCH ×3 (12:08→20:54)
[2020-04-26] MEDS ORDERED: ENTER DRUG NAME HERE (PATIENT'S OWN MED) OU SCH (12:20)
--- NOTE | 2020-04-26 13:36 | IPNPDOC ---
Text Note Date of Service The patient was seen on 04/26/20. NOTE SUBJECTIVE: Continues to complain of low back pain and pain in her right butt ocks and back of the thigh. PHYSICAL EXAMINATION VITAL SIGNS: Please see below. General: Alert, No Acute Distress Eye: PERRLA, Conjunctiva & lids normal, EOMI, anicteric ENT: Atraumatic, Mucous membr. moist/pink, Pharynx Normal Neck: Supple, no JVD or palpable thyromegaly Chest: Clear to auscultation, Normal air movement Heart: Rate Normal, Regular Rhythm, Normal S1, Normal S2 without noted murmurs or gallops Abdomen: Normal bowel sounds,soft, NTND Extremities: Normal pulses, no edema Skin: Nl turgor and temperature, no breakdown or lesions noted Neuro: Normal Speech, Sensation Intact, Cranial Nerves 3-12 NL, lower back and R buttock pain with RLE straight leg raise, LLE 5/5 , RLE is otherwise 5/5 as well but limited by pain. Psych: Mental status NL, Mood NL, Oriented x 3 Labs and Radiology: Reviewed Assessment and Plan: 85 yo W with a history of severe degenerative disc disease s/p prior laminectomies, HTN, vertigo, hypothyroidism, lumbar radiculopathy w/ chronic back pain who presented to the ED on 04/23/20 reporting 2 weeks of worsening lower back pain that started in her central lower back and has gotten worse to include R buttock and found to have subacute R sacral and R iliac insufficiency fractures with associated edema and a second sacral fracture in the midline as well being admitted for pain control, ortho evaluation and safe discharge planning with ortho recommending pain management with pain service onboard, PT/OT and outpatient follow up with spine surgery. Patient was evaluated by PT/OT and felt to need continued rehab prior to DC home. Patient was transferred to ARU on 04/26/20 for continued rehab. Right Sacral superior vertebral insufficiency fracture + right iliac crest insufficiency fracture +Second Sacral vertebral fracture. Ortho consulted --> No surgical intervention indicated at this time, recommended weightbearing as tolerated mobilization as tolerated with physical therapy and occupational therapy departments and a walker as needed as well evaluation by the pain service. pain control with norco and tramadol, prednisone, tylenol and nabumetone. pain clinic referral on discharge Continue PT/OT as per ARU Lumber spinal stenosis L2-L3/Right lumber radiculopathy With Chronic Low back pain h/o laminectomy in the past referral to spinal surgeon as outpatient HTN: On amlodipine, labetelol and hydralazine Hypothyroidism: continue home synthroid Vertigo continue home meclizine VS,Fishbone, I+O VS, Fishbone, I+O Laboratory Tests 04/26/20 05:51 Vital Signs Date Time Temp Pulse Resp B/P (MAP) Pulse Ox O2 Delivery O2 Flow Rate FiO2 04/26/20 12:08 16 04/26/20 09:20 177/82 04/26/20 09:20 84 04/26/20 06:00 97.8 93 Room Air I&O- Last 24 Hours up to 6 AM 04/26/20 05:59 Intake Total 170 ml Balance 170 ml DEMETRIUS ALEXANDRE MD Apr 26, 2020 13:36
[2020-04-26 14:00] VITALS: BP 126/58
[2020-04-26] MEDS: POLYVINYL ALCOHOL OPHTH SOLN 15 ML(LIQUITEARS) OU SCH ×2 (16:13→20:56)
[2020-04-26 20:00] VITALS: BP 146/74
[2020-04-26] MEDS: SENNA 8.6 MG TAB (SENOKOT) PO SCH (20:54)
[2020-04-27] MEDS: **hydrALAZINE HCL** 25 MG TAB PO SCH ×4 (01:56→21:04)
[2020-04-27 06:00] VITALS: BP 157/86
[2020-04-27 06:09] LABS: BASO % 0.3 % (0.0-1.0); EOS # 0.2 10^3/uL (0.0-0.5); EOS % 1.4 % (0.0-3.0); HEMATOCRIT 32.6 % (36.0-47.0); LYMPH # 3.4 10^3/uL (1.5-5.0); LYMPH % 25.7 % (24.0-44.0); MEAN CORPUSCULAR HEMOGLOBIN 33.4 pg (27.0-33.0); MEAN CORPUSCULAR HGB CONC 33.7 g/dl (32.0-36.5); MEAN CORPUSCULAR VOLUME 99.1 fl (80.0-96.0); MONO # 1.3 10^3/uL (0.0-0.8); MONO % 9.5 % (2.0-8.0); NEUTROPHILS # 8.2 10^3/uL (1.5-8.5); NEUTROPHILS % 61.7 % (36.0-66.0); PLATELET COUNT, AUTOMATED 426 10^3/uL (150-450); RED BLOOD COUNT 3.29 10^6/uL (4.00-5.40); WHITE BLOOD COUNT 13.3 10^3/uL (4.0-10.0)
[2020-04-27 06:27] LABS: BLOOD UREA NITROGEN 22 MG/DL (7-18); CALCIUM LEVEL 8.7 MG/DL (8.8-10.2); CARBON DIOXIDE LEVEL 29 MEQ/L (21-32); CHLORIDE LEVEL 101 MEQ/L (98-107); CREATININE FOR GFR 0.74 MG/DL (0.55-1.30); GLOMERULAR FILTRATION RATE > 60.0 (>32); GLUCOSE, FASTING 99 MG/DL (70-100); POTASSIUM SERUM 3.5 MEQ/L (3.5-5.1); SODIUM LEVEL 136 MEQ/L (136-145)
[2020-04-27] MEDS: LEVOTHYROXINE 100MCG TABLET (0.1MG) PO SCH (06:27)
[2020-04-27] MEDS: ASPIRIN 81MG ENTERIC TABLET PO SCH (08:51)
[2020-04-27] MEDS: ACETAMINOPHEN 500 MG TAB PO SCH ×3 (08:51→21:03)
[2020-04-27] MEDS: MECLIZINE 25 MG TABLET PO SCH ×3 (08:52→21:00)
[2020-04-27] MEDS: amLODIPine 5 MG TAB PO SCH (08:52)
[2020-04-27] MEDS: PANTOPRAZOLE 40MG TAB (PROTONIX) PO SCH (08:53)
[2020-04-27] MEDS: LOSARTAN 50MG TABLET PO SCH ×2 (08:53→21:04)
[2020-04-27] MEDS: LABETALOL 100MG TAB PO SCH ×2 (08:53→21:02)
[2020-04-27] MEDS: DOCUSATE SODIUM 100MG CAPSULE PO SCH ×2 (08:53→21:00)
[2020-04-27] MEDS: NABUMETONE 750 MG PO SCH ×2 (08:54→20:59)
[2020-04-27] MEDS: ENOXAPARIN 40MG/0.4ML SYRINGE (J1650 PER 10MG) SC SCH (08:54)
[2020-04-27] MEDS: traMADol 50 MG TAB PO SCH ×3 (08:56→21:00)
[2020-04-27] MEDS: POLYVINYL ALCOHOL OPHTH SOLN 15 ML(LIQUITEARS) OU SCH ×2 (08:56→20:12)
[2020-04-27] MEDS: REMEDY PHYTOPLEX Z-GUARD PASTE 113GM TUBE (FROM STOREROOM PRODUCT) TOP SCH ×3 (08:57→21:00)
[2020-04-27] MEDS ORDERED: predniSONE 10 MG TAB PO ONE (09:00)
[2020-04-27 14:00] VITALS: BP 138/70
[2020-04-27 20:00] VITALS: BP 161/75
[2020-04-27] MEDS: SENNA 8.6 MG TAB (SENOKOT) PO SCH (20:59)
[2020-04-28 02:43] VITALS: BP 182/86
[2020-04-28] MEDS: **hydrALAZINE HCL** 25 MG TAB PO SCH ×4 (02:48→21:11)
[2020-04-28 05:00] VITALS: BP 192/84
[2020-04-28 05:24] VITALS: BP 190/90
[2020-04-28] MEDS: LEVOTHYROXINE 100MCG TABLET (0.1MG) PO SCH (05:55)
[2020-04-28] MEDS: amLODIPine 5 MG TAB PO SCH (05:56)
[2020-04-28] MEDS: LABETALOL 100MG TAB PO SCH ×2 (05:56→21:10)
[2020-04-28 08:22] VITALS: BP 144/86
[2020-04-28] MEDS: LOSARTAN 50MG TABLET PO SCH ×2 (08:24→21:10)
[2020-04-28] MEDS: ACETAMINOPHEN 500 MG TAB PO SCH ×3 (08:24→21:13)
[2020-04-28] MEDS: PANTOPRAZOLE 40MG TAB (PROTONIX) PO SCH (08:24)
[2020-04-28] MEDS: ENOXAPARIN 40MG/0.4ML SYRINGE (J1650 PER 10MG) SC SCH (08:24)
[2020-04-28] MEDS: MECLIZINE 25 MG TABLET PO SCH ×4 (08:25→21:00)
[2020-04-28] MEDS: ASPIRIN 81MG ENTERIC TABLET PO SCH (08:25)
[2020-04-28] MEDS: traMADol 50 MG TAB PO SCH ×3 (08:25→21:12)
[2020-04-28] MEDS: REMEDY PHYTOPLEX Z-GUARD PASTE 113GM TUBE (FROM STOREROOM PRODUCT) TOP SCH ×3 (08:26→21:00)
[2020-04-28] MEDS: DOCUSATE SODIUM 100MG CAPSULE PO SCH ×2 (08:26→21:09)
[2020-04-28] MEDS: NABUMETONE 750 MG PO SCH ×2 (08:26→21:09)
[2020-04-28] MEDS: POLYVINYL ALCOHOL OPHTH SOLN 15 ML(LIQUITEARS) OU SCH ×2 (08:26→21:13)
[2020-04-28] MEDS ORDERED: predniSONE 20 MG TAB PO ONE (09:00)
[2020-04-28 14:00] VITALS: BP 143/80
[2020-04-28 20:00] VITALS: BP 156/84
[2020-04-28] MEDS: SENNA 8.6 MG TAB (SENOKOT) PO SCH (21:10)
[2020-04-29 04:00] VITALS: BP 202/96
[2020-04-29] MEDS: **hydrALAZINE HCL** 25 MG TAB PO SCH ×4 (04:20→20:17)
[2020-04-29] MEDS: amLODIPine 5 MG TAB PO SCH (04:35)
[2020-04-29] MEDS: LABETALOL 100MG TAB PO SCH ×2 (04:35→20:17)
[2020-04-29 05:00] VITALS: BP 189/92
[2020-04-29 06:00] VITALS: BP 184/87
[2020-04-29] MEDS: LEVOTHYROXINE 100MCG TABLET (0.1MG) PO SCH (06:23)
[2020-04-29] MEDS: ENOXAPARIN 40MG/0.4ML SYRINGE (J1650 PER 10MG) SC SCH (08:31)
[2020-04-29] MEDS: ASPIRIN 81MG ENTERIC TABLET PO SCH (08:31)
[2020-04-29] MEDS: LOSARTAN 50MG TABLET PO SCH ×2 (08:31→20:17)
[2020-04-29] MEDS: PANTOPRAZOLE 40MG TAB (PROTONIX) PO SCH (08:31)
[2020-04-29] MEDS: ACETAMINOPHEN 500 MG TAB PO SCH ×3 (08:31→20:16)
[2020-04-29] MEDS: REMEDY PHYTOPLEX Z-GUARD PASTE 113GM TUBE (FROM STOREROOM PRODUCT) TOP SCH ×3 (08:32→20:17)
[2020-04-29] MEDS: NABUMETONE 750 MG PO SCH ×2 (08:32→20:19)
[2020-04-29] MEDS: traMADol 50 MG TAB PO SCH ×3 (08:32→20:18)
[2020-04-29] MEDS: POLYVINYL ALCOHOL OPHTH SOLN 15 ML(LIQUITEARS) OU SCH ×2 (08:32→20:17)
[2020-04-29] MEDS: MECLIZINE 25 MG TABLET PO SCH ×3 (08:40→20:15)
[2020-04-29] MEDS: DOCUSATE SODIUM 100MG CAPSULE PO SCH ×2 (08:40→20:15)
[2020-04-29] MEDS ORDERED: predniSONE 10 MG TAB PO ONE (09:00)
[2020-04-29 14:00] VITALS: BP 160/72
[2020-04-29 20:00] VITALS: BP 162/72
[2020-04-29] MEDS: SENNA 8.6 MG TAB (SENOKOT) PO SCH (20:15)
[2020-04-30] MEDS: **hydrALAZINE HCL** 25 MG TAB PO SCH ×3 (02:16→14:21)
[2020-04-30] MEDS: LEVOTHYROXINE 100MCG TABLET (0.1MG) PO SCH (05:59)
[2020-04-30 06:00] VITALS: BP 170/90
[2020-04-30 06:37] LABS: BASO # 0.1 10^3/uL (0.0-0.2); BASO % 0.5 % (0.0-1.0); EOS # 0.2 10^3/uL (0.0-0.5); EOS % 1.6 % (0.0-3.0); HEMATOCRIT 34.3 % (36.0-47.0); HEMOGLOBIN 11.5 g/dl (12.0-15.5); LYMPH # 2.6 10^3/uL (1.5-5.0); LYMPH % 23.2 % (24.0-44.0); MEAN CORPUSCULAR HEMOGLOBIN 33.8 pg (27.0-33.0); MEAN CORPUSCULAR HGB CONC 33.5 g/dl (32.0-36.5); MEAN CORPUSCULAR VOLUME 100.9 fl (80.0-96.0); MONO # 1.1 10^3/uL (0.0-0.8); MONO % 10.4 % (2.0-8.0); NEUTROPHILS # 6.9 10^3/uL (1.5-8.5); NEUTROPHILS % 62.8 % (36.0-66.0); PLATELET COUNT, AUTOMATED 449 10^3/uL (150-450)
[2020-04-30 07:05] LABS: BLOOD UREA NITROGEN 22 MG/DL (7-18); CALCIUM LEVEL 8.6 MG/DL (8.8-10.2); CARBON DIOXIDE LEVEL 28 MEQ/L (21-32); CHLORIDE LEVEL 102 MEQ/L (98-107); CREATININE FOR GFR 0.68 MG/DL (0.55-1.30); GLOMERULAR FILTRATION RATE > 60.0 (>32); GLUCOSE, FASTING 92 MG/DL (70-100); POTASSIUM SERUM 3.6 MEQ/L (3.5-5.1); SODIUM LEVEL 137 MEQ/L (136-145)
[2020-04-30] MEDS: LOSARTAN 50MG TABLET PO SCH ×2 (08:37→20:31)
[2020-04-30] MEDS: DOCUSATE SODIUM 100MG CAPSULE PO SCH ×2 (08:37→20:34)
[2020-04-30] MEDS: PANTOPRAZOLE 40MG TAB (PROTONIX) PO SCH (08:37)
[2020-04-30] MEDS: ACETAMINOPHEN 500 MG TAB PO SCH ×3 (08:37→20:33)
[2020-04-30] MEDS: MECLIZINE 25 MG TABLET PO SCH ×3 (08:37→20:42)
[2020-04-30] MEDS: POLYVINYL ALCOHOL OPHTH SOLN 15 ML(LIQUITEARS) OU SCH ×2 (08:38→20:34)
[2020-04-30] MEDS: ASPIRIN 81MG ENTERIC TABLET PO SCH (08:38)
[2020-04-30] MEDS: LABETALOL 100MG TAB PO SCH ×2 (08:38→20:31)
[2020-04-30] MEDS: amLODIPine 5 MG TAB PO SCH ×2 (08:38→20:32)
[2020-04-30] MEDS: ENOXAPARIN 40MG/0.4ML SYRINGE (J1650 PER 10MG) SC SCH (08:39)
[2020-04-30] MEDS: NABUMETONE 750 MG PO SCH ×2 (08:39→20:33)
[2020-04-30] MEDS: traMADol 50 MG TAB PO SCH (08:40)
[2020-04-30] MEDS ORDERED: predniSONE 5 MG TAB PO ONE (09:00)
[2020-04-30] MEDS: REMEDY PHYTOPLEX Z-GUARD PASTE 113GM TUBE (FROM STOREROOM PRODUCT) TOP SCH ×3 (09:00→20:35)
[2020-04-30 14:00] VITALS: BP 139/66
--- NOTE | 2020-04-30 15:44 | IPNPDOC ---
PM&R Progress Note DATE OF SERVICE: Apr 30, 2020 [employer] Progress Note Subjective: Patient reporting she felt dizzy this morning after taking oxycodone and it did not help her pain, she would like to try the tramadol again instead. REVIEW OF SYSTEMS: The following is a completed review of systems and has been reviewed. Review of systems otherwise unremarkable. PAIN: Patient self reports right buttock pain EYES: No recent vision changes EARS, NOSE, & THROAT: No throat pain, or dysphagia, or rhinorrhea CARDIOVASCULAR: Denies chest pain or palpitations PULMONARY: Denies shortness of breath GASTROINTESTINAL: Denies constipation/diarrhea GENITOURINARY:denies dysuria MUSCULOSKELETAL: RLE weakness NEUROLOGICAL:denies tremor or paresthesias HEMATOLOGICAL: denies easy bruising SKIN: denies rash PSYCHIATRIC: Unremarkable All other review of systems found to be negative. PHYSICAL EXAMINATION: VITAL SIGNS: Please see below. GENERAL: Pleasant and cooperative. No acute distress. HEENT: PERRL. Extraocular movements intact. Clear conjunctiva CARDIOVASCULAR: Regular rate and rhythm. No murmurs, rubs, or gallops LUNGS: Clear to auscultation bilaterally. No wheezes. No rhonchi ABDOMEN: Soft, nontender, nondistended. Positive bowel sounds. Normal active bowel sounds NEUROLOGICAL: Alert and oriented times three. Cranial nerves II through XII grossly intact. Sensation grossly intact EXTREMITIES: 5\5 strength bilateral upper extremities. 4\5 strength right lower extremity. 4/5 strength in left lower extremity. ASSESSMENT:85-year-old F with past medical history of chronic low back pain s/p laminectomies who presents status post sacral insufficiency fracture PLAN: 1. PT/OT advance mobility and ADLs, strengthen/stretch/maintain ROM all 4 limbs- ambulating with RW 2. CArdiac- hx of HTN- c/u BP meds, amlodipine and hydralazine added for better control -CAD c/u ASA -medicine consulted to assist in overall management 3. Resp- monitor for infection 4. Rheum- hx of RA on nabumetaone 5. Ortho- recently diagnosed sacral insufficiency fractures, tapering off steroids, c/u tylenol, c/u low dose cymbalta, patient did not toerate oxycodone, will switch back to tramadol -f/u pain clinic/spine surgeon 6. Neuro- hx of vertigo c/u meclizine 7. GI ppx- protonix 8. DVT ppx- lovenox 9. Endo- hypothyroidism- c/u synthroid 10. Dispo- tbd Allergies Coded Allergies: TAPE (Verified Allergy, Intermediate, SURGICAL TAPE - RASH, 01/17/15) Lsjicmf-[id number]-Eus Reductase Inhibitor (Verified Adverse Reaction, Unknown, 04/23/20) muscle aches Vital Signs Vital Signs Date Time Temp Pulse Resp B/P (MAP) Pulse Ox O2 Delivery O2 Flow Rate FiO2 04/30/20 14:21 128/70 04/30/20 14:00 97.9 97 18 97 Room Air Laboratory Data CBC/BMP Laboratory Tests 04/30/20 06:20 Labs 24H Laboratory Tests 2 04/30/20 06:20: Immature Granulocyte % (Auto) 1.5, Neutrophils (%) (Auto) 62.8, Lymphocytes (%) (Auto) 23.2L, Monocytes (%) (Auto) 10.4H, Eosinophils (%) (Auto) 1.6, Basophils (%) (Auto) 0.5, Neutrophils # (Auto) 6.9, Lymphocytes # (Auto) 2.6, Monocytes # (Auto) 1.1H, Eosinophils # (Auto) 0.2, Basophils # (Auto) 0.1, Nucleated Red Blood Cells % (auto) 0.0, Anion Gap 7L, Glomerular Filtration Rate > 60.0, Calcium Level 8.6L Current Medications Current Medications Current Medications Medications (Trade) Dose Ordered Sig/Jessica Route PRN Reason Start Time Stop Time Status Last Admin Dose Admin Acetaminophen (Tylenol Tab) 1,000 mg TID PO 04/25/20 21:00 04/30/20 08:37 Amlodipine Besylate (Norvasc) 5 mg BID PO 04/30/20 09:00 04/30/20 08:38 Amlodipine Besylate (Norvasc) 5 mg DAILY PO 04/26/20 09:00 04/30/20 08:18 DC 04/29/20 04:35 Artificial Tears (Akwa Tears) 1 drop BID OU 04/26/20 14:00 04/30/20 08:38 Aspirin (Ecotrin) 81 mg DAILY PO 04/26/20 09:00 04/30/20 08:38 Docusate Sodium (Colace) 100 mg BID PO 04/25/20 21:00 04/30/20 08:37 Enoxaparin Sodium (Lovenox) 40 mg DAILY SC 04/26/20 09:00 04/30/20 08:39 Home Med (Med Rec Complete!) ASDIRECTED XX 04/25/20 15:50 04/25/20 15:52 DC Hydralazine HCl (Apresoline) 25 mg Q6H PO 04/26/20 08:35 04/30/20 08:37 Labetalol HCl (Normodyne, Trandate) 100 mg BID PO 04/25/20 21:00 04/30/20 08:38 Levothyroxine Sodium (Synthroid) 100 mcg DAILY@06 PO 04/26/20 06:00 04/30/20 05:59 Losartan Potassium (Cozaar) 50 mg BID PO 04/25/20 21:00 04/30/20 08:37 Meclizine HCl (Antivert) 25 mg TID PO 04/25/20 21:00 04/30/20 08:37 Pantoprazole Sodium (Protonix) 40 mg DAILY PO 04/26/20 09:00 04/30/20 08:37 Patient Own Medication (Patient'S Own Med) Nabumetone 750mg TA... BID PO 04/25/20 21:00 04/30/20 08:39 Patient Own Medication (Patient'S Own Med) systane ultra eye drops... ASDIRECTED OU 04/26/20 12:20 04/26/20 12:41 DC Prednisone (Deltasone) 40 mg DAILY PO 04/26/20 09:00 04/26/20 14:12 DC 04/26/20 09:14 Senna (Senokot) 1 tab QHS PO 04/25/20 21:00 04/29/20 20:15 Tramadol HCl (Ultram) 25 mg Q4HP PRN PO MODERATE PAIN (PS 5-7) 04/25/20 16:30 04/26/20 10:52 DC Tramadol HCl (Ultram) 25 mg Q6HP PRN PO MODERATE PAIN (PS 5-7) 04/26/20 10:50 04/28/20 00:28 Tramadol HCl (Ultram) 25 mg TID PO 04/26/20 10:50 04/30/20 15:42 DC 04/30/20 08:40 Tramadol HCl (Ultram) 50 mg TID PO 04/30/20 16:00 MELANIE MALLORY MD Apr 30, 2020 15:44
[2020-04-30] MEDS ORDERED: traMADol 50 MG TAB PO SCH (16:00)
[2020-04-30] MEDS: oxyCODONE 5MG TAB PO SCH (16:00)
[2020-04-30] MEDS: DULoxetine 20 MG CAP (CYMBALTA) PO SCH (18:01)
[2020-04-30] MEDS: LIDOCAINE 5% (LIDODERM) PATCH TD SCH (18:02)
[2020-04-30 20:00] VITALS: BP 136/64
[2020-04-30 20:05] VITALS: BP 136/64
[2020-04-30] MEDS: SENNA 8.6 MG TAB (SENOKOT) PO SCH (20:30)
[2020-04-30] MEDS: **NOTE PATIENT COMMENT** MISC XX SCH (20:50)
[2020-05-01 00:17] VITALS: BP 141/76
[2020-05-01] MEDS: **hydrALAZINE HCL** 25 MG TAB PO SCH ×4 (00:33→18:36)
[2020-05-01] MEDS: LEVOTHYROXINE 100MCG TABLET (0.1MG) PO SCH (05:53)
[2020-05-01 06:00] VITALS: BP 159/83
[2020-05-01] MEDS: oxyCODONE 5MG TAB PO SCH (07:11)
[2020-05-01] MEDS: DOCUSATE SODIUM 100MG CAPSULE PO SCH ×2 (10:21→20:43)
[2020-05-01] MEDS: ENOXAPARIN 40MG/0.4ML SYRINGE (J1650 PER 10MG) SC SCH (10:21)
[2020-05-01] MEDS: LOSARTAN 50MG TABLET PO SCH ×2 (10:22→20:44)
[2020-05-01] MEDS: amLODIPine 5 MG TAB PO SCH ×2 (10:22→20:45)
[2020-05-01] MEDS: ASPIRIN 81MG ENTERIC TABLET PO SCH (10:22)
[2020-05-01] MEDS: DULoxetine 20 MG CAP (CYMBALTA) PO SCH (10:22)
[2020-05-01] MEDS: PANTOPRAZOLE 40MG TAB (PROTONIX) PO SCH (10:22)
[2020-05-01] MEDS: MECLIZINE 25 MG TABLET PO SCH ×3 (10:22→20:51)
[2020-05-01] MEDS: ACETAMINOPHEN 500 MG TAB PO SCH ×3 (10:23→20:43)
[2020-05-01] MEDS: LABETALOL 100MG TAB PO SCH ×2 (10:23→20:45)
[2020-05-01] MEDS: NABUMETONE 750 MG PO SCH ×2 (10:24→20:43)
[2020-05-01] MEDS: REMEDY PHYTOPLEX Z-GUARD PASTE 113GM TUBE (FROM STOREROOM PRODUCT) TOP SCH ×3 (10:25→20:46)
[2020-05-01] MEDS: LIDOCAINE 5% (LIDODERM) PATCH TD SCH (10:25)
[2020-05-01] MEDS: POLYVINYL ALCOHOL OPHTH SOLN 15 ML(LIQUITEARS) OU SCH ×2 (10:26→20:45)
--- NOTE | 2020-05-01 12:43 | IPNPDOC ---
PM&R Progress Note DATE OF SERVICE: Apr 30, 2020 [employer] Progress Note Subjective: Patient reporting tramadol is not helping her sacral pain and she would like to try an alternative medication. REVIEW OF SYSTEMS: The following is a completed review of systems and has been reviewed. Review of systems otherwise unremarkable. PAIN: Patient self reports right buttock pain EYES: No recent vision changes EARS, NOSE, & THROAT: No throat pain, or dysphagia, or rhinorrhea CARDIOVASCULAR: Denies chest pain or palpitations PULMONARY: Denies shortness of breath GASTROINTESTINAL: Denies constipation/diarrhea GENITOURINARY:denies dysuria MUSCULOSKELETAL: RLE weakness NEUROLOGICAL:denies tremor or paresthesias HEMATOLOGICAL: denies easy bruising SKIN: denies rash PSYCHIATRIC: Unremarkable All other review of systems found to be negative. PHYSICAL EXAMINATION: VITAL SIGNS: Please see below. GENERAL: Pleasant and cooperative. No acute distress. HEENT: PERRL. Extraocular movements intact. Clear conjunctiva CARDIOVASCULAR: Regular rate and rhythm. No murmurs, rubs, or gallops LUNGS: Clear to auscultation bilaterally. No wheezes. No rhonchi ABDOMEN: Soft, nontender, nondistended. Positive bowel sounds. Normal active bowel sounds NEUROLOGICAL: Alert and oriented times three. Cranial nerves II through XII grossly intact. Sensation grossly intact EXTREMITIES: 5\5 strength bilateral upper extremities. 4\5 strength right lower extremity. 4/5 strength in left lower extremity. ASSESSMENT:85-year-old F with past medical history of chronic low back pain s/p laminectomies who presents status post sacral insufficiency fracture PLAN: 1. PT/OT advance mobility and ADLs, strengthen/stretch/maintain ROM all 4 limbs-ambulating with RW 2. CArdiac- hx of HTN- c/u BP meds, amlodipine and hydralazine added for better control -CAD c/u ASA -medicine consulted to assist in overall management 3. Resp- monitor for infection 4. Rheum- hx of RA on nabumetaone 5. Ortho- recently diagnosed sacral insufficiency fractures, tapering off steroids, c/u tylenol, will star low dose cymbalta and trial of oxycodone as tra madol is not helping her pain -f/u pain clinic/spine surgeon 6. Neuro- hx of vertigo c/u meclizine 7. GI ppx- protonix 8. DVT ppx- lovenox 9. Endo- hypothyroidism- c/u synthroid 10. Dispo- tbd Allergies Coded Allergies: TAPE (Verified Allergy, Intermediate, SURGICAL TAPE - RASH, 01/17/15) Ggvycrh-[id number]-Jre Reductase Inhibitor (Verified Adverse Reaction, Unknown, 04/23/20) muscle aches Vital Signs Vital Signs Date Time Temp Pulse Resp B/P (MAP) Pulse Ox O2 Delivery O2 Flow Rate FiO2 05/01/20 10:23 78 159/83 05/01/20 07:11 18 05/01/20 06:00 96.9 95 Room Air Current Medications Current Medications Current Medications Medications (Trade) Dose Ordered Sig/Jessica Route PRN Reason Start Time Stop Time Status Last Admin Dose Admin Acetaminophen (Tylenol Tab) 1,000 mg TID PO 04/25/20 21:00 05/01/20 10:23 Amlodipine Besylate (Norvasc) 5 mg BID PO 04/30/20 09:00 05/01/20 10:22 Amlodipine Besylate (Norvasc) 5 mg DAILY PO 04/26/20 09:00 04/30/20 08:18 DC 04/29/20 04:35 Artificial Tears (Akwa Tears) 1 drop BID OU 04/26/20 14:00 05/01/20 10:26 Aspirin (Ecotrin) 81 mg DAILY PO 04/26/20 09:00 05/01/20 10:22 Docusate Sodium (Colace) 100 mg BID PO 04/25/20 21:00 05/01/20 10:21 Duloxetine HCl (Cymbalta) 20 mg DAILY PO 04/30/20 09:00 05/01/20 10:22 Enoxaparin Sodium (Lovenox) 40 mg DAILY SC 04/26/20 09:00 05/01/20 10:21 Home Med (Med Rec Complete!) ASDIRECTED XX 04/25/20 15:50 04/25/20 15:52 DC Hydralazine HCl (Apresoline) 25 mg Q6H PO 04/26/20 08:35 04/30/20 18:49 DC 04/30/20 08:37 Hydralazine HCl (Apresoline) 25 mg Q6H PO 05/01/20 00:00 05/01/20 05:53 Labetalol HCl (Normodyne, Trandate) 100 mg BID PO 04/25/20 21:00 05/01/20 10:23 Levothyroxine Sodium (Synthroid) 100 mcg DAILY@06 PO 04/26/20 06:00 05/01/20 05:53 Lidocaine (Lidoderm Patch) 1 patch DAILY TD 04/30/20 09:00 05/01/20 10:25 Losartan Potassium (Cozaar) 50 mg BID PO 04/25/20 21:00 05/01/20 10:22 Meclizine HCl (Antivert) 25 mg TID PO 04/25/20 21:00 05/01/20 10:22 Non-Formulary Medication ( See Comment Field Below ) REMOVE LIDODERM PATCH DAILY@21 XX 04/30/20 21:00 04/30/20 20:50 Oxycodone HCl (Roxicodone, Oxyir) 2.5 mg TID@0800,1200,1600 PO 04/30/20 16:00 05/01/20 11:00 DC 05/01/20 07:11 Pantoprazole Sodium (Protonix) 40 mg DAILY PO 04/26/20 09:00 05/01/20 10:22 Patient Own Medication (Patient'S Own Med) Nabumetone 750mg TA... BID PO 04/25/20 21:00 05/01/20 10:24 Patient Own Medication (Patient'S Own Med) systane ultra eye drops... ASDIRECTED OU 04/26/20 12:20 04/26/20 12:41 DC Prednisone (Deltasone) 40 mg DAILY PO 04/26/20 09:00 04/26/20 14:12 DC 04/26/20 09:14 Senna (Senokot) 1 tab QHS PO 04/25/20 21:00 04/30/20 20:30 Tramadol HCl (Ultram) 25 mg Q4HP PRN PO MODERATE PAIN (PS 5-7) 04/25/20 16:30 04/26/20 10:52 DC Tramadol HCl (Ultram) 25 mg Q6HP PRN PO MODERATE PAIN (PS 5-7) 04/26/20 10:50 04/30/20 16:49 DC 04/28/20 00:28 Tramadol HCl (Ultram) 25 mg TID PO 04/26/20 10:50 04/30/20 15:42 DC 04/30/20 08:40 Tramadol HCl (Ultram) 50 mg DAILY@0800,1200,1600 PO 05/01/20 12:00 Tramadol HCl (Ultram) 50 mg QHS PRN PO MODERATE PAIN (PS 5-7) 05/01/20 11:00 Tramadol HCl (Ultram) 50 mg TID PO 04/30/20 16:00 04/30/20 16:49 DC 04/30/20 15:58 MELANIE NUNO MD May 01, 2020 12:43
[2020-05-01] MEDS: traMADol 50 MG TAB PO SCH ×2 (13:39→18:36)
[2020-05-01 14:00] VITALS: BP 143/70
[2020-05-01 20:10] VITALS: BP 157/86
[2020-05-01] MEDS: SENNA 8.6 MG TAB (SENOKOT) PO SCH (21:35)
[2020-05-01] MEDS: **NOTE PATIENT COMMENT** MISC XX SCH (21:40)
[2020-05-02] VITALS (8 sets, daily range): BP systolic 128–189; BP diastolic 71–90
[2020-05-02] MEDS: LEVOTHYROXINE 100MCG TABLET (0.1MG) PO SCH (05:51)
[2020-05-02] MEDS: **hydrALAZINE HCL** 25 MG TAB PO SCH ×2 (05:51)
[2020-05-02 06:41] LABS: BASO % 0.4 % (0.0-1.0); EOS # 0.3 10^3/uL (0.0-0.5); HEMATOCRIT 31.7 % (36.0-47.0); HEMOGLOBIN 10.9 g/dl (12.0-15.5); LYMPH % 20.9 % (24.0-44.0); MEAN CORPUSCULAR HEMOGLOBIN 34.3 pg (27.0-33.0); MEAN CORPUSCULAR HGB CONC 34.4 g/dl (32.0-36.5); MEAN CORPUSCULAR VOLUME 99.7 fl (80.0-96.0); MONO # 0.9 10^3/uL (0.0-0.8); MONO % 9.3 % (2.0-8.0); NEUTROPHILS # 6.2 10^3/uL (1.5-8.5); NEUTROPHILS % 64.5 % (36.0-66.0); PLATELET COUNT, AUTOMATED 381 10^3/uL (150-450); RED BLOOD COUNT 3.18 10^6/uL (4.00-5.40); WHITE BLOOD COUNT 9.6 10^3/uL (4.0-10.0)
[2020-05-02 07:11] LABS: BLOOD UREA NITROGEN 16 MG/DL (7-18); CALCIUM LEVEL 8.5 MG/DL (8.8-10.2); CARBON DIOXIDE LEVEL 26 MEQ/L (21-32); CHLORIDE LEVEL 96 MEQ/L (98-107); CREATININE FOR GFR 0.55 MG/DL (0.55-1.30); GLOMERULAR FILTRATION RATE > 60.0 (>32); GLUCOSE, FASTING 94 MG/DL (70-100); POTASSIUM SERUM 3.4 MEQ/L (3.5-5.1); SODIUM LEVEL 129 MEQ/L (136-145)
[2020-05-02] MEDS: DOCUSATE SODIUM 100MG CAPSULE PO SCH ×2 (09:00→20:15)
[2020-05-02] MEDS: PANTOPRAZOLE 40MG TAB (PROTONIX) PO SCH (09:50)
[2020-05-02] MEDS: ASPIRIN 81MG ENTERIC TABLET PO SCH (09:50)
[2020-05-02] MEDS: LABETALOL 100MG TAB PO SCH ×2 (09:50→20:15)
[2020-05-02] MEDS: MECLIZINE 25 MG TABLET PO SCH ×3 (09:51→20:15)
[2020-05-02] MEDS: traMADol 50 MG TAB PO SCH ×3 (09:51→15:44)
[2020-05-02] MEDS: DULoxetine 20 MG CAP (CYMBALTA) PO SCH (09:51)
[2020-05-02] MEDS: LOSARTAN 50MG TABLET PO SCH ×2 (09:52→20:16)
[2020-05-02] MEDS: amLODIPine 5 MG TAB PO SCH ×2 (09:52→20:15)
[2020-05-02] MEDS: NABUMETONE 750 MG PO SCH ×2 (09:52→21:00)
[2020-05-02] MEDS: ACETAMINOPHEN 500 MG TAB PO SCH ×3 (09:52→20:14)
[2020-05-02] MEDS: ENOXAPARIN 40MG/0.4ML SYRINGE (J1650 PER 10MG) SC SCH (09:53)
[2020-05-02] MEDS: LIDOCAINE 5% (LIDODERM) PATCH TD SCH (09:53)
[2020-05-02] MEDS: REMEDY PHYTOPLEX Z-GUARD PASTE 113GM TUBE (FROM STOREROOM PRODUCT) TOP SCH ×3 (09:54→20:17)
[2020-05-02] MEDS: POLYVINYL ALCOHOL OPHTH SOLN 15 ML(LIQUITEARS) OU SCH ×2 (09:54→20:16)
[2020-05-02 11:34] LABS: BLOOD UREA NITROGEN 17 MG/DL (7-18); CALCIUM LEVEL 8.4 MG/DL (8.8-10.2); CARBON DIOXIDE LEVEL 28 MEQ/L (21-32); CHLORIDE LEVEL 94 MEQ/L (98-107); CREATININE FOR GFR 0.49 MG/DL (0.55-1.30); GLOMERULAR FILTRATION RATE > 60.0 (>32); GLUCOSE, FASTING 111 MG/DL (70-100); POTASSIUM SERUM 3.4 MEQ/L (3.5-5.1); SODIUM LEVEL 128 MEQ/L (136-145)
[2020-05-02] MEDS: **hydrALAZINE** 50 MG TAB PO SCH ×2 (12:00→17:44)
--- NOTE | 2020-05-02 13:06 | IPNPDOC ---
PM&R Progress Note DATE OF SERVICE: May 02, 2020 Commercial Kitchen Service Technician Progress Note Subjective: Patient reporting it spivey with urination. She understands her cymbalta will need to be stopped since her sodium levels dropped. Denies nausea, tremor, or c onfusion. REVIEW OF SYSTEMS: The following is a completed review of systems and has been reviewed. Review of systems otherwise unremarkable. PAIN: Patient self reports right buttock pain EYES: No recent vision changes EARS, NOSE, & THROAT: No throat pain, or dysphagia, or rhinorrhea CARDIOVASCULAR: Denies chest pain or palpitations PULMONARY: Denies shortness of breath GASTROINTESTINAL: Denies constipation/diarrhea GENITOURINARY:denies dysuria MUSCULOSKELETAL: RLE weakness NEUROLOGICAL:denies tremor or paresthesias HEMATOLOGICAL: denies easy bruising SKIN: denies rash PSYCHIATRIC: Unremarkable All other review of systems found to be negative. PHYSICAL EXAMINATION: VITAL SIGNS: Please see below. GENERAL: Pleasant and cooperative. No acute distress. HEENT: PERRL. Extraocular movements intact. Clear conjunctiva CARDIOVASCULAR: Regular rate and rhythm. No murmurs, rubs, or gallops LUNGS: Clear to auscultation bilaterally. No wheezes. No rhonchi ABDOMEN: Soft, nontender, nondistended. Positive bowel sounds. Normal active bowel sounds NEUROLOGICAL: Alert and oriented times three. Cranial nerves II through XII grossly intact. Sensation grossly intact EXTREMITIES: 5\5 strength bilateral upper extremities. 4\5 strength right lower extremity. 4/5 strength in left lower extremity. ASSESSMENT:85-year-old F with past medical history of chronic low back pain s/p laminectomies who presents status post sacral insufficiency fracture PLAN: 1. PT/OT advance mobility and ADLs, strengthen/stretch/maintain ROM all 4 limbs- ambulating with RW 2. CArdiac- hx of HTN- c/u BP meds, amlodipine and hydralazine which I will increase dosing today for better control -CAD c/u ASA -medicine consulted to assist in overall management 3. Resp- monitor for infection 4. Rheum- hx of RA on nabumetaone 5. Ortho- recently diagnosed sacral insufficiency fractures, tapered off steroids, c/u tylenol and tramadol- will stop cymbalta today as may be causing SIADH -f/u pain clinic/spine surgeon 6. Neuro- hx of vertigo c/u meclizine 7. GI ppx- protonix 8. DVT ppx- lovenox 9. Endo- hypothyroidism- c/u synthroid 10. 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 - dysuria will order UA/Ucx 12. Dispo- tbd Allergies Coded Allergies: TAPE (Verified Allergy, Intermediate, SURGICAL TAPE - RASH, 01/17/15) Jbcctjs-[id number]-Cve Reductase Inhibitor (Verified Adverse Reaction, Unknown, 04/23/20) muscle aches Vital Signs Vital Signs Date Time Temp Pulse Resp B/P (MAP) Pulse Ox O2 Delivery O2 Flow Rate FiO2 05/02/20 13:00 84 128/90 (103) 05/02/20 09:51 18 05/02/20 05:53 97.0 95 Room Air Laboratory Data CBC/BMP Laboratory Tests 05/02/20 06:26 05/02/20 10:51 Labs 24H Laboratory Tests 2 05/02/20 06:26: Immature Granulocyte % (Auto) 1.9, Neutrophils (%) (Auto) 64.5, Lymphocytes (%) (Auto) 20.9L, Monocytes (%) (Auto) 9.3H, Eosinophils (%) (Auto) 3.0, Basophils (%) (Auto) 0.4, Neutrophils # (Auto) 6.2, Lymphocytes # (Auto) 2.0, Monocytes # (Auto) 0.9H, Eosinophils # (Auto) 0.3, Basophils # (Auto) 0.0, Nucleated Red Blood Cells % (auto) 0.0, Anion Gap 7L, Glomerular Filtration Rate > 60.0, Calcium Level 8.5L 05/02/20 10:51: Anion Gap 6L, Glomerular Filtration Rate > 60.0, Calcium Level 8.4L Current Medications Current Medications Current Medications Medications (Trade) Dose Ordered Sig/Jessica Route PRN Reason Start Time Stop Time Status Last Admin Dose Admin Acetaminophen (Tylenol Tab) 1,000 mg TID PO 04/25/20 21:00 05/02/20 09:52 Amlodipine Besylate (Norvasc) 5 mg BID PO 04/30/20 09:00 05/02/20 09:52 Amlodipine Besylate (Norvasc) 5 mg DAILY PO 04/26/20 09:00 04/30/20 08:18 DC 04/29/20 04:35 Artificial Tears (Akwa Tears) 1 drop BID OU 04/26/20 14:00 05/02/20 09:54 Aspirin (Ecotrin) 81 mg DAILY PO 04/26/20 09:00 05/02/20 09:50 Docusate Sodium (Colace) 100 mg BID PO 04/25/20 21:00 05/01/20 20:43 Duloxetine HCl (Cymbalta) 20 mg DAILY PO 04/30/20 09:00 05/02/20 09:51 Enoxaparin Sodium (Lovenox) 40 mg DAILY SC 04/26/20 09:00 05/02/20 09:53 Home Med (Med Rec Complete!) ASDIRECTED XX 04/25/20 15:50 04/25/20 15:52 DC Hydralazine HCl (Apresoline) 25 mg Q6H PO 04/26/20 08:35 04/30/20 18:49 DC 04/30/20 08:37 Hydralazine HCl (Apresoline) 25 mg Q6H PO 05/01/20 00:00 05/02/20 10:43 DC 05/02/20 05:51 Hydralazine HCl (Apresoline) 50 mg Q6H PO 05/02/20 12:00 Labetalol HCl (Normodyne, Trandate) 100 mg BID PO 04/25/20 21:00 05/02/20 09:50 Levothyroxine Sodium (Synthroid) 100 mcg DAILY@06 PO 04/26/20 06:00 05/02/20 05:51 Lidocaine (Lidoderm Patch) 1 patch DAILY TD 04/30/20 09:00 05/02/20 09:53 Losartan Potassium (Cozaar) 50 mg BID PO 04/25/20 21:00 05/02/20 09:52 Meclizine HCl (Antivert) 25 mg TID PO 04/25/20 21:00 05/02/20 09:51 Non-Formulary Medication ( See Comment Field Below ) REMOVE LIDODERM PATCH DAILY@21 XX 04/30/20 21:00 05/01/20 21:40 Oxycodone HCl (Roxicodone, Oxyir) 2.5 mg TID@0800,1200,1600 PO 04/30/20 16:00 05/01/20 11:00 DC 05/01/20 07:11 Pantoprazole Sodium (Protonix) 40 mg DAILY PO 04/26/20 09:00 05/02/20 09:50 Patient Own Medication (Patient'S Own Med) Nabumetone 750mg TA... BID PO 04/25/20 21:00 05/02/20 09:52 Patient Own Medication (Patient'S Own Med) systane ultra eye drops... ASDIRECTED OU 04/26/20 12:20 04/26/20 12:41 DC Prednisone (Deltasone) 40 mg DAILY PO 04/26/20 09:00 04/26/20 14:12 DC 04/26/20 09:14 Senna (Senokot) 1 tab QHS PO 04/25/20 21:00 05/01/20 21:35 Tramadol HCl (Ultram) 25 mg Q4HP PRN PO MODERATE PAIN (PS 5-7) 04/25/20 16:30 04/26/20 10:52 DC Tramadol HCl (Ultram) 25 mg Q6HP PRN PO MODERATE PAIN (PS 5-7) 04/26/20 10:50 04/30/20 16:49 DC 04/28/20 00:28 Tramadol HCl (Ultram) 25 mg TID PO 04/26/20 10:50 04/30/20 15:42 DC 04/30/20 08:40 Tramadol HCl (Ultram) 50 mg DAILY@0800,1200,1600 PO 05/01/20 12:00 05/02/20 09:51 Tramadol HCl (Ultram) 50 mg QHS PRN PO MODERATE PAIN (PS 5-7) 05/01/20 11:00 Tramadol HCl (Ultram) 50 mg TID PO 04/30/20 16:00 04/30/20 16:49 DC 04/30/20 15:58 MELANIE NUNO MD May 02, 2020 13:06
[2020-05-02] MEDS ORDERED: POTASSIUM CHLORIDE 10 MEQ SR TABLET PO ONE (13:15)
[2020-05-02] MEDS: SENNA 8.6 MG TAB (SENOKOT) PO SCH (20:15)
[2020-05-02] MEDS: **NOTE PATIENT COMMENT** MISC XX SCH (21:01)
[2020-05-03] MEDS: **hydrALAZINE** 50 MG TAB PO SCH ×5 (00:05→23:54)
[2020-05-03 05:23] VITALS: BP 157/75
[2020-05-03] MEDS: LEVOTHYROXINE 100MCG TABLET (0.1MG) PO SCH (06:14)
[2020-05-03 06:47] LABS: BLOOD UREA NITROGEN 12 MG/DL (7-18); CALCIUM LEVEL 8.3 MG/DL (8.8-10.2); CARBON DIOXIDE LEVEL 26 MEQ/L (21-32); CHLORIDE LEVEL 94 MEQ/L (98-107); CREATININE FOR GFR 0.44 MG/DL (0.55-1.30); GLOMERULAR FILTRATION RATE > 60.0 (>32); GLUCOSE, FASTING 98 MG/DL (70-100); POTASSIUM SERUM 3.8 MEQ/L (3.5-5.1); SODIUM LEVEL 127 MEQ/L (136-145)
[2020-05-03] MEDS: traMADol 50 MG TAB PO SCH ×3 (08:21→15:50)
[2020-05-03] MEDS: LOSARTAN 50MG TABLET PO SCH ×2 (08:22→20:14)
[2020-05-03] MEDS: ASPIRIN 81MG ENTERIC TABLET PO SCH (08:22)
[2020-05-03] MEDS: MECLIZINE 25 MG TABLET PO SCH ×3 (08:22→20:14)
[2020-05-03] MEDS: amLODIPine 5 MG TAB PO SCH ×2 (08:22→20:13)
[2020-05-03] MEDS: LABETALOL 100MG TAB PO SCH ×2 (08:22→20:14)
[2020-05-03] MEDS: ENOXAPARIN 40MG/0.4ML SYRINGE (J1650 PER 10MG) SC SCH (08:22)
[2020-05-03] MEDS: PANTOPRAZOLE 40MG TAB (PROTONIX) PO SCH (08:22)
[2020-05-03] MEDS: ACETAMINOPHEN 500 MG TAB PO SCH ×3 (08:22→20:13)
[2020-05-03] MEDS: REMEDY PHYTOPLEX Z-GUARD PASTE 113GM TUBE (FROM STOREROOM PRODUCT) TOP SCH ×3 (08:23→20:15)
[2020-05-03] MEDS: POLYVINYL ALCOHOL OPHTH SOLN 15 ML(LIQUITEARS) OU SCH ×2 (08:23→20:15)
[2020-05-03] MEDS: DOCUSATE SODIUM 100MG CAPSULE PO SCH (08:23)
[2020-05-03] MEDS: NABUMETONE 750 MG PO SCH ×2 (08:23→20:12)
[2020-05-03] MEDS: LOPERAMIDE 2 MG CAPLET PO PRN (09:56)
[2020-05-03] MEDS: GABAPENTIN 100 MG CAP PO SCH ×3 (09:56→20:14)
[2020-05-03] MEDS: LevoFLOXacin 750 MG TABLET PO SCH (09:56)
[2020-05-03] MEDS: LACTOBACILLUS ACIDOPHILUS CAP (BACID) PO SCH ×3 (09:56→20:14)
[2020-05-03] MEDS: SODIUM CHLORIDE 1 GM TAB PO SCH ×3 (10:44→20:14)
[2020-05-03 12:01] VITALS: BP 161/75
[2020-05-03 14:00] VITALS: BP 152/76
[2020-05-03 17:00] VITALS: BP 170/84
[2020-05-03 20:00] VITALS: BP 165/73
[2020-05-03] MEDS: traMADol 50 MG TAB PO PRN (20:18)
[2020-05-04 05:36] VITALS: BP 125/64
[2020-05-04] MEDS: **hydrALAZINE** 50 MG TAB PO SCH ×3 (05:46→17:22)
[2020-05-04] MEDS: LEVOTHYROXINE 100MCG TABLET (0.1MG) PO SCH (05:59)
[2020-05-04] MEDS: LevoFLOXacin 750 MG TABLET PO SCH (05:59)
[2020-05-04 06:43] LABS: BASO % 0.2 % (0.0-1.0); EOS # 0.2 10^3/uL (0.0-0.5); EOS % 1.8 % (0.0-3.0); HEMATOCRIT 29.3 % (36.0-47.0); HEMOGLOBIN 10.1 g/dl (12.0-15.5); LYMPH # 1.7 10^3/uL (1.5-5.0); LYMPH % 19.1 % (24.0-44.0); MEAN CORPUSCULAR HEMOGLOBIN 33.7 pg (27.0-33.0); MEAN CORPUSCULAR HGB CONC 34.5 g/dl (32.0-36.5); MEAN CORPUSCULAR VOLUME 97.7 fl (80.0-96.0); MONO # 1.1 10^3/uL (0.0-0.8); MONO % 12.3 % (2.0-8.0); NEUTROPHILS % 65.1 % (36.0-66.0); PLATELET COUNT, AUTOMATED 367 10^3/uL (150-450); WHITE BLOOD COUNT 9.1 10^3/uL (4.0-10.0)
[2020-05-04 07:21] LABS: BLOOD UREA NITROGEN 14 MG/DL (7-18); CALCIUM LEVEL 8.2 MG/DL (8.8-10.2); CARBON DIOXIDE LEVEL 26 MEQ/L (21-32); CHLORIDE LEVEL 89 MEQ/L (98-107); CREATININE FOR GFR 0.61 MG/DL (0.55-1.30); GLOMERULAR FILTRATION RATE > 60.0 (>32); GLUCOSE, FASTING 96 MG/DL (70-100); POTASSIUM SERUM 3.7 MEQ/L (3.5-5.1); SODIUM LEVEL 122 MEQ/L (136-145)
[2020-05-04] MEDS: amLODIPine 5 MG TAB PO SCH ×2 (07:32→20:22)
[2020-05-04] MEDS: PANTOPRAZOLE 40MG TAB (PROTONIX) PO SCH (07:32)
[2020-05-04] MEDS: LACTOBACILLUS ACIDOPHILUS CAP (BACID) PO SCH ×3 (07:32→20:21)
[2020-05-04] MEDS: GABAPENTIN 100 MG CAP PO SCH (07:33)
[2020-05-04] MEDS: traMADol 50 MG TAB PO SCH ×3 (07:33→15:58)
[2020-05-04] MEDS: LOSARTAN 50MG TABLET PO SCH ×2 (07:33→20:22)
[2020-05-04] MEDS: ASPIRIN 81MG ENTERIC TABLET PO SCH (07:33)
[2020-05-04] MEDS: ACETAMINOPHEN 500 MG TAB PO SCH ×3 (07:33→20:22)
[2020-05-04] MEDS: LABETALOL 100MG TAB PO SCH ×2 (07:34→20:21)
[2020-05-04] MEDS: REMEDY PHYTOPLEX Z-GUARD PASTE 113GM TUBE (FROM STOREROOM PRODUCT) TOP SCH ×3 (07:34→20:24)
[2020-05-04] MEDS: POLYVINYL ALCOHOL OPHTH SOLN 15 ML(LIQUITEARS) OU SCH ×2 (07:34→20:23)
[2020-05-04] MEDS: ENOXAPARIN 40MG/0.4ML SYRINGE (J1650 PER 10MG) SC SCH (07:34)
[2020-05-04] MEDS: SODIUM CHLORIDE 1 GM TAB PO SCH ×3 (07:34→20:20)
[2020-05-04] MEDS: NABUMETONE 750 MG PO SCH ×2 (07:35→20:23)
[2020-05-04] MEDS ORDERED: NS 1,000 ML IV SCH (10:00)
[2020-05-04 11:56] VITALS: BP 153/69
[2020-05-04 14:00] VITALS: BP 132/71
[2020-05-04 15:51] LABS: BLOOD UREA NITROGEN 13 MG/DL (7-18); CALCIUM LEVEL 8.1 MG/DL (8.8-10.2); CARBON DIOXIDE LEVEL 23 MEQ/L (21-32); CHLORIDE LEVEL 90 MEQ/L (98-107); CREATININE FOR GFR 0.56 MG/DL (0.55-1.30); GLOMERULAR FILTRATION RATE > 60.0 (>32); GLUCOSE, FASTING 106 MG/DL (70-100); POTASSIUM SERUM 3.5 MEQ/L (3.5-5.1); SODIUM LEVEL 121 MEQ/L (136-145)
[2020-05-04 17:20] VITALS: BP 163/75
[2020-05-04 20:00] VITALS: BP 132/90
[2020-05-04] MEDS: traMADol 50 MG TAB PO PRN (20:26)
[2020-05-05 01:35] LABS: BLOOD UREA NITROGEN 8 MG/DL (7-18); CARBON DIOXIDE LEVEL 26 MEQ/L (21-32); CHLORIDE LEVEL 95 MEQ/L (98-107); CREATININE FOR GFR 0.42 MG/DL (0.55-1.30); GLOMERULAR FILTRATION RATE > 60.0 (>32); GLUCOSE, FASTING 93 MG/DL (70-100); POTASSIUM SERUM 3.4 MEQ/L (3.5-5.1); SODIUM LEVEL 127 MEQ/L (136-145)
[2020-05-05] MEDS: LevoFLOXacin 750 MG TABLET PO SCH (06:07)
[2020-05-05] MEDS: LEVOTHYROXINE 100MCG TABLET (0.1MG) PO SCH (06:07)
[2020-05-05] MEDS: **hydrALAZINE** 50 MG TAB PO SCH ×4 (06:08→18:00)
[2020-05-05 06:18] VITALS: BP 150/70
[2020-05-05 07:56] LABS: BLOOD UREA NITROGEN 7 MG/DL (7-18); CALCIUM LEVEL 8.2 MG/DL (8.8-10.2); CARBON DIOXIDE LEVEL 22 MEQ/L (21-32); CHLORIDE LEVEL 95 MEQ/L (98-107); CREATININE FOR GFR 0.62 MG/DL (0.55-1.30); GLOMERULAR FILTRATION RATE > 60.0 (>32); GLUCOSE, FASTING 102 MG/DL (70-100); POTASSIUM SERUM 3.5 MEQ/L (3.5-5.1); SODIUM LEVEL 127 MEQ/L (136-145)
[2020-05-05] MEDS: traMADol 50 MG TAB PO SCH ×3 (08:03→16:49)
[2020-05-05] MEDS: SODIUM CHLORIDE 1 GM TAB PO SCH ×3 (08:03→20:22)
[2020-05-05] MEDS: LACTOBACILLUS ACIDOPHILUS CAP (BACID) PO SCH ×3 (08:06→20:22)
[2020-05-05] MEDS: amLODIPine 5 MG TAB PO SCH ×2 (08:06→20:22)
[2020-05-05] MEDS: PANTOPRAZOLE 40MG TAB (PROTONIX) PO SCH (08:06)
[2020-05-05] MEDS: ACETAMINOPHEN 500 MG TAB PO SCH ×3 (08:06→20:22)
[2020-05-05] MEDS: LOPERAMIDE 2 MG CAPLET PO PRN ×2 (08:06→16:48)
[2020-05-05] MEDS: LOSARTAN 50MG TABLET PO SCH ×2 (08:07→20:21)
[2020-05-05] MEDS: LABETALOL 100MG TAB PO SCH ×2 (08:07→20:22)
[2020-05-05] MEDS: ENOXAPARIN 40MG/0.4ML SYRINGE (J1650 PER 10MG) SC SCH (08:07)
[2020-05-05] MEDS: ASPIRIN 81MG ENTERIC TABLET PO SCH (08:07)
[2020-05-05] MEDS: REMEDY PHYTOPLEX Z-GUARD PASTE 113GM TUBE (FROM STOREROOM PRODUCT) TOP SCH ×3 (08:08→20:23)
[2020-05-05] MEDS: NABUMETONE 750 MG PO SCH ×2 (08:08→20:21)
[2020-05-05] MEDS: POLYVINYL ALCOHOL OPHTH SOLN 15 ML(LIQUITEARS) OU SCH ×2 (08:08→20:23)
[2020-05-05 14:00] VITALS: BP 152/68
[2020-05-05 20:00] VITALS: BP 159/79
[2020-05-05] MEDS: traMADol 50 MG TAB PO PRN (20:21)
[2020-05-06 05:48] VITALS: BP 154/72
[2020-05-06] MEDS: LEVOTHYROXINE 100MCG TABLET (0.1MG) PO SCH (06:27)
[2020-05-06] MEDS: **hydrALAZINE** 50 MG TAB PO SCH ×5 (06:27→23:50)
[2020-05-06] MEDS: ENOXAPARIN 40MG/0.4ML SYRINGE (J1650 PER 10MG) SC SCH (07:54)
[2020-05-06] MEDS: LACTOBACILLUS ACIDOPHILUS CAP (BACID) PO SCH ×3 (07:55→20:43)
[2020-05-06] MEDS: PANTOPRAZOLE 40MG TAB (PROTONIX) PO SCH (07:55)
[2020-05-06] MEDS: amLODIPine 5 MG TAB PO SCH ×2 (07:55→20:45)
[2020-05-06] MEDS: SODIUM CHLORIDE 1 GM TAB PO SCH ×3 (07:55→20:43)
[2020-05-06] MEDS: LABETALOL 100MG TAB PO SCH ×2 (07:56→20:46)
[2020-05-06] MEDS: ASPIRIN 81MG ENTERIC TABLET PO SCH (07:56)
[2020-05-06] MEDS: ACETAMINOPHEN 500 MG TAB PO SCH ×3 (07:57→20:45)
[2020-05-06] MEDS: traMADol 50 MG TAB PO SCH ×3 (07:57→17:01)
[2020-05-06] MEDS: POLYVINYL ALCOHOL OPHTH SOLN 15 ML(LIQUITEARS) OU SCH ×2 (07:58→20:47)
[2020-05-06] MEDS: LOSARTAN 50MG TABLET PO SCH ×2 (07:58→20:45)
[2020-05-06] MEDS: REMEDY PHYTOPLEX Z-GUARD PASTE 113GM TUBE (FROM STOREROOM PRODUCT) TOP SCH ×3 (07:58→20:46)
[2020-05-06 07:59] LABS: BLOOD UREA NITROGEN 8 MG/DL (7-18); CALCIUM LEVEL 8.2 MG/DL (8.8-10.2); CARBON DIOXIDE LEVEL 26 MEQ/L (21-32); CHLORIDE LEVEL 97 MEQ/L (98-107); CREATININE FOR GFR 0.42 MG/DL (0.55-1.30); GLOMERULAR FILTRATION RATE > 60.0 (>32); GLUCOSE, FASTING 96 MG/DL (70-100); POTASSIUM SERUM 3.1 MEQ/L (3.5-5.1); SODIUM LEVEL 130 MEQ/L (136-145)
[2020-05-06] MEDS: NABUMETONE 750 MG PO SCH ×2 (07:59→20:47)
[2020-05-06 14:00] VITALS: BP 140/76
[2020-05-06 20:00] VITALS: BP 155/77
[2020-05-06 23:30] VITALS: BP 132/72
[2020-05-07 05:20] VITALS: BP 162/72
[2020-05-07] MEDS: LEVOTHYROXINE 100MCG TABLET (0.1MG) PO SCH (05:35)
[2020-05-07] MEDS: **hydrALAZINE** 50 MG TAB PO SCH ×3 (05:36→17:03)
[2020-05-07 07:39] LABS: BASO % 0.2 % (0.0-1.0); EOS # 0.2 10^3/uL (0.0-0.5); EOS % 2.1 % (0.0-3.0); HEMATOCRIT 29.3 % (36.0-47.0); HEMOGLOBIN 10.2 g/dl (12.0-15.5); LYMPH # 1.7 10^3/uL (1.5-5.0); LYMPH % 20.7 % (24.0-44.0); MEAN CORPUSCULAR HEMOGLOBIN 34.6 pg (27.0-33.0); MEAN CORPUSCULAR HGB CONC 34.8 g/dl (32.0-36.5); MEAN CORPUSCULAR VOLUME 99.3 fl (80.0-96.0); MONO # 1.1 10^3/uL (0.0-0.8); MONO % 13.3 % (2.0-8.0); NEUTROPHILS # 5.3 10^3/uL (1.5-8.5); NEUTROPHILS % 62.9 % (36.0-66.0); PLATELET COUNT, AUTOMATED 369 10^3/uL (150-450); RED BLOOD COUNT 2.95 10^6/uL (4.00-5.40); WHITE BLOOD COUNT 8.4 10^3/uL (4.0-10.0)
[2020-05-07 08:01] LABS: BLOOD UREA NITROGEN 11 MG/DL (7-18); CALCIUM LEVEL 8.2 MG/DL (8.8-10.2); CARBON DIOXIDE LEVEL 26 MEQ/L (21-32); CHLORIDE LEVEL 100 MEQ/L (98-107); CREATININE FOR GFR 0.43 MG/DL (0.55-1.30); GLOMERULAR FILTRATION RATE > 60.0 (>32); GLUCOSE, FASTING 98 MG/DL (70-100); POTASSIUM SERUM 3.4 MEQ/L (3.5-5.1); SODIUM LEVEL 132 MEQ/L (136-145)
[2020-05-07] MEDS: NABUMETONE 750 MG PO SCH ×2 (09:00→20:29)
[2020-05-07] MEDS: SODIUM CHLORIDE 1 GM TAB PO SCH ×3 (09:44→20:29)
[2020-05-07] MEDS: traMADol 50 MG TAB PO SCH ×3 (09:44→17:00)
[2020-05-07] MEDS: amLODIPine 5 MG TAB PO SCH ×2 (09:47→20:33)
[2020-05-07] MEDS: ASPIRIN 81MG ENTERIC TABLET PO SCH (09:48)
[2020-05-07] MEDS: LOSARTAN 50MG TABLET PO SCH ×2 (09:48→20:32)
[2020-05-07] MEDS: PANTOPRAZOLE 40MG TAB (PROTONIX) PO SCH (09:48)
[2020-05-07] MEDS: LACTOBACILLUS ACIDOPHILUS CAP (BACID) PO SCH ×3 (09:48→20:30)
[2020-05-07] MEDS: ACETAMINOPHEN 500 MG TAB PO SCH ×3 (09:48→20:33)
[2020-05-07] MEDS: ENOXAPARIN 40MG/0.4ML SYRINGE (J1650 PER 10MG) SC SCH (09:49)
[2020-05-07] MEDS: LABETALOL 100MG TAB PO SCH ×2 (09:49→20:32)
[2020-05-07] MEDS: REMEDY PHYTOPLEX Z-GUARD PASTE 113GM TUBE (FROM STOREROOM PRODUCT) TOP SCH ×3 (09:53→20:32)
[2020-05-07] MEDS: POLYVINYL ALCOHOL OPHTH SOLN 15 ML(LIQUITEARS) OU SCH ×2 (09:53→20:31)
[2020-05-07] MEDS ORDERED: POTASSIUM CHLORIDE 10 MEQ SR TABLET PO ONE (12:00)
--- NOTE | 2020-05-07 12:02 | IPNPDOC ---
PM&R Progress Note DATE OF SERVICE: May 03, 2020 Night Shift Supervisor Progress Note Subjective: Patient reporting she is having loose stools and requesting imodium. She states she is still having burning with urination and understands she will start on antibiotic for likely UTI. No fever/chills. REVIEW OF SYSTEMS: The following is a completed review of systems and has been reviewed. Review of systems otherwise unremarkable. PAIN: Patient self reports right buttock pain EYES: No recent vision changes EARS, NOSE, & THROAT: No throat pain, or dysphagia, or rhinorrhea CARDIOVASCULAR: Denies chest pain or palpitations PULMONARY: Denies shortness of breath GASTROINTESTINAL: +loose stools GENITOURINARY:+dysuria MUSCULOSKELETAL: RLE weakness NEUROLOGICAL:denies tremor or paresthesias HEMATOLOGICAL: denies easy bruising SKIN: denies rash PSYCHIATRIC: Unremarkable All other review of systems found to be negative. PHYSICAL EXAMINATION: VITAL SIGNS: Please see below. GENERAL: Pleasant and cooperative. No acute distress. HEENT: PERRL. Extraocular movements intact. Clear conjunctiva CARDIOVASCULAR: Regular rate and rhythm. No murmurs, rubs, or gallops LUNGS: Clear to auscultation bilaterally. No wheezes. No rhonchi ABDOMEN: Soft, nontender, nondistended. Positive bowel sounds. Normal active bowel sounds NEUROLOGICAL: Alert and oriented times three. Cranial nerves II through XII grossly intact. Sensation grossly intact EXTREMITIES: 5\5 strength bilateral upper extremities. 4\5 strength right lower extremity. 4/5 strength in left lower extremity. ASSESSMENT:85-year-old F with past medical history of chronic low back pain s/p laminectomies who presents status post sacral insufficiency fracture PLAN: 1. PT/OT advance mobility and ADLs, strengthen/stretch/maintain ROM all 4 limbs- ambulating with RW 2. CArdiac- hx of HTN- c/u BP meds, amlodipine and hydralazine which I will increase dosing today for better control -CAD c/u ASA -medicine consulted to assist in overall management 3. Resp- monitor for infection 4. Rheum- hx of RA on nabumetaone 5. 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 Neuro- hx of vertigo c/u meclizine 7. GI ppx- protonix 8. DVT ppx- lovenox 9. Endo- hypothyroidism- c/u synthroid 10. 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 - UA +, will start Levaquin for UTI, f/u Ucx 12. Dispo- tbd Allergies Coded Allergies: TAPE (Verified Allergy, Intermediate, SURGICAL TAPE - RASH, 01/17/15) Vvyvejx-Ami-Bzc Reductase Inhibitor (Verified Adverse Reaction, Unknown, 04/23/20) muscle aches Vital Signs Vital Signs Date Time Temp Pulse Resp B/P (MAP) Pulse Ox O2 Delivery O2 Flow Rate FiO2 05/07/20 09:49 80 138/66 05/07/20 09:44 18 05/07/20 05:20 99.3 96 Room Air Laboratory Data CBC/BMP Laboratory Tests 05/07/20 07:13 Labs 24H Laboratory Tests 2 05/07/20 07:13: Immature Granulocyte % (Auto) 0.8, Neutrophils (%) (Auto) 62.9, Lymphocytes (%) (Auto) 20.7L, Monocytes (%) (Auto) 13.3H, Eosinophils (%) (Auto) 2.1, Basophils (%) (Auto) 0.2, Neutrophils # (Auto) 5.3, Lymphocytes # (Auto) 1.7, Monocytes # (Auto) 1.1H, Eosinophils # (Auto) 0.2, Basophils # (Auto) 0.0, Nucleated Red Blood Cells % (auto) 0.0, Anion Gap 6L, Glomerular Filtration Rate > 60.0, Calcium Level 8.2L Microbiology Microbiology 05/02/20 Urine Culture - Final, Complete Providencia Rettgeri Current Medications Current Medications Current Medications Medications (Trade) Dose Ordered Sig/Jessica Route PRN Reason Start Time Stop Time Status Last Admin Dose Admin Acetaminophen (Tylenol Tab) 1,000 mg TID PO 04/25/20 21:00 05/07/20 09:48 Amlodipine Besylate (Norvasc) 5 mg BID PO 04/30/20 09:00 05/07/20 09:47 Amlodipine Besylate (Norvasc) 5 mg DAILY PO 04/26/20 09:00 04/30/20 08:18 DC 04/29/20 04:35 Artificial Tears (Akwa Tears) 1 drop BID OU 04/26/20 14:00 05/07/20 09:53 Aspirin (Ecotrin) 81 mg DAILY PO 04/26/20 09:00 05/07/20 09:48 Docusate Sodium (Colace) 100 mg BID PO 04/25/20 21:00 05/03/20 11:30 DC 05/02/20 20:15 Duloxetine HCl (Cymbalta) 20 mg DAILY PO 04/30/20 09:00 05/02/20 13:02 DC 05/02/20 09:51 Enoxaparin Sodium (Lovenox) 40 mg DAILY SC 04/26/20 09:00 05/07/20 09:49 Gabapentin (Neurontin) 100 mg TID PO 05/03/20 09:00 05/04/20 09:59 DC 05/04/20 07:33 Home Med (Med Rec Complete!) ASDIRECTED XX 04/25/20 15:50 04/25/20 15:52 DC Hydralazine HCl (Apresoline) 25 mg Q6H PO 04/26/20 08:35 04/30/20 18:49 DC 04/30/20 08:37 Hydralazine HCl (Apresoline) 25 mg Q6H PO 05/01/20 00:00 05/02/20 10:43 DC 05/02/20 05:51 Hydralazine HCl (Apresoline) 50 mg Q6H PO 05/02/20 12:00 05/07/20 05:36 Labetalol HCl (Normodyne, Trandate) 100 mg BID PO 04/25/20 21:00 05/07/20 09:49 Lactobacillus Acidophilus (Bacid) 1 ea TID PO 05/03/20 09:00 05/07/20 09:48 Levofloxacin (Levaquin) 750 mg DAILY@06 PO 05/03/20 06:00 05/05/20 06:01 DC 05/05/20 06:07 Levothyroxine Sodium (Synthroid) 100 mcg DAILY@06 PO 04/26/20 06:00 05/07/20 05:35 Lidocaine (Lidoderm Patch) 1 patch DAILY TD 04/30/20 09:00 05/02/20 13:02 DC 05/02/20 09:53 Loperamide HCl (Imodium) 2 mg ASDIRECTED PRN PO DIARRHEA 05/03/20 09:35 05/05/20 16:48 Losartan Potassium (Cozaar) 50 mg BID PO 04/25/20 21:00 05/07/20 09:48 Meclizine HCl (Antivert) 25 mg TID PO 04/25/20 21:00 05/04/20 09:33 DC 05/03/20 20:14 Non-Formulary Medication ( See Comment Field Below ) REMOVE LIDODERM PATCH DAILY@21 XX 04/30/20 21:00 05/03/20 08:01 DC 05/02/20 21:01 Oxycodone HCl (Roxicodone, Oxyir) 2.5 mg TID@0800,1200,1600 PO 04/30/20 16:00 05/01/20 11:00 DC 05/01/20 07:11 Pantoprazole Sodium (Protonix) 40 mg DAILY PO 04/26/20 09:00 05/07/20 09:48 Patient Own Medication (Patient'S Own Med) Nabumetone 750mg TA... BID PO 04/25/20 21:00 05/07/20 09:00 Patient Own Medication (Patient'S Own Med) systane ultra eye drops... ASDIRECTED OU 04/26/20 12:20 04/26/20 12:41 DC Prednisone (Deltasone) 40 mg DAILY PO 04/26/20 09:00 04/26/20 14:12 DC 04/26/20 09:14 Senna (Senokot) 1 tab QHS PO 04/25/20 21:00 05/03/20 11:30 DC 05/02/20 20:15 Sodium Chloride 1,000 ml @ 60 mls/hr [id number] IV 05/04/20 10:00 05/05/20 02:39 DC 05/04/20 10:26 Sodium Chloride (Sodium Chloride) 1 gm TID PO 05/03/20 09:00 05/04/20 09:30 DC 05/04/20 07:34 Sodium Chloride (Sodium Chloride) 2 gm TID PO 05/04/20 16:00 05/07/20 09:44 Tramadol HCl (Ultram) 25 mg Q4HP PRN PO MODERATE PAIN (PS 5-7) 04/25/20 16:30 04/26/20 10:52 DC Tramadol HCl (Ultram) 25 mg Q6HP PRN PO MODERATE PAIN (PS 5-7) 04/26/20 10:50 04/30/20 16:49 DC 04/28/20 00:28 Tramadol HCl (Ultram) 25 mg TID PO 04/26/20 10:50 04/30/20 15:42 DC 04/30/20 08:40 Tramadol HCl (Ultram) 50 mg DAILY@0800,1200,1600 PO 05/01/20 12:00 05/07/20 09:44 Tramadol HCl (Ultram) 50 mg QHS PRN PO MODERATE PAIN (PS 5-7) 05/01/20 11:00 05/05/20 20:21 Tramadol HCl (Ultram) 50 mg TID PO 04/30/20 16:00 04/30/20 16:49 DC 04/30/20 15:58 MELANIE NUNO MD May 07, 2020 12:02
[2020-05-07 20:00] VITALS: BP 137/71
[2020-05-08] MEDS: **hydrALAZINE** 50 MG TAB PO SCH ×4 (00:21→17:41)
[2020-05-08 05:19] VITALS: BP 139/79
[2020-05-08] MEDS: LEVOTHYROXINE 100MCG TABLET (0.1MG) PO SCH (06:17)
[2020-05-08 07:23] LABS: BLOOD UREA NITROGEN 12 MG/DL (7-18); CALCIUM LEVEL 8.6 MG/DL (8.8-10.2); CARBON DIOXIDE LEVEL 26 MEQ/L (21-32); CHLORIDE LEVEL 102 MEQ/L (98-107); CREATININE FOR GFR 0.56 MG/DL (0.55-1.30); GLOMERULAR FILTRATION RATE > 60.0 (>32); GLUCOSE, FASTING 91 MG/DL (70-100); POTASSIUM SERUM 3.8 MEQ/L (3.5-5.1); SODIUM LEVEL 135 MEQ/L (136-145)
[2020-05-08] MEDS: LACTOBACILLUS ACIDOPHILUS CAP (BACID) PO SCH ×3 (08:31→21:09)
[2020-05-08] MEDS: LABETALOL 100MG TAB PO SCH ×2 (08:32→21:10)
[2020-05-08] MEDS: PANTOPRAZOLE 40MG TAB (PROTONIX) PO SCH (08:32)
[2020-05-08] MEDS: SODIUM CHLORIDE 1 GM TAB PO SCH ×3 (08:32→21:09)
[2020-05-08] MEDS: LOSARTAN 50MG TABLET PO SCH ×2 (08:32→21:11)
[2020-05-08] MEDS: ASPIRIN 81MG ENTERIC TABLET PO SCH (08:32)
[2020-05-08] MEDS: ACETAMINOPHEN 500 MG TAB PO SCH ×3 (08:33→21:11)
[2020-05-08] MEDS: amLODIPine 5 MG TAB PO SCH ×2 (08:33→21:10)
[2020-05-08] MEDS: NABUMETONE 750 MG PO SCH ×2 (08:33→21:12)
[2020-05-08] MEDS: traMADol 50 MG TAB PO SCH ×3 (08:33→16:16)
[2020-05-08] MEDS: POLYVINYL ALCOHOL OPHTH SOLN 15 ML(LIQUITEARS) OU SCH ×2 (08:34→21:13)
[2020-05-08] MEDS: ENOXAPARIN 40MG/0.4ML SYRINGE (J1650 PER 10MG) SC SCH (08:34)
[2020-05-08] MEDS: REMEDY PHYTOPLEX Z-GUARD PASTE 113GM TUBE (FROM STOREROOM PRODUCT) TOP SCH ×3 (08:34→21:13)
[2020-05-08 14:00] VITALS: BP 151/77
[2020-05-08 20:19] VITALS: BP 166/74
[2020-05-09] VITALS (7 sets, daily range): BP systolic 137–176; BP diastolic 62–86
[2020-05-09] MEDS: **hydrALAZINE** 50 MG TAB PO SCH ×5 (05:48→23:50)
[2020-05-09] MEDS: LEVOTHYROXINE 100MCG TABLET (0.1MG) PO SCH (05:48)
[2020-05-09 08:20] LABS: BASO % 0.3 % (0.0-1.0); EOS # 0.3 10^3/uL (0.0-0.5); EOS % 4.4 % (0.0-3.0); HEMATOCRIT 28.6 % (36.0-47.0); HEMOGLOBIN 9.6 g/dl (12.0-15.5); LYMPH # 1.8 10^3/uL (1.5-5.0); LYMPH % 26.7 % (24.0-44.0); MEAN CORPUSCULAR HGB CONC 33.6 g/dl (32.0-36.5); MEAN CORPUSCULAR VOLUME 101.4 fl (80.0-96.0); NEUTROPHILS # 3.6 10^3/uL (1.5-8.5); PLATELET COUNT, AUTOMATED 402 10^3/uL (150-450); RED BLOOD COUNT 2.82 10^6/uL (4.00-5.40); WHITE BLOOD COUNT 6.8 10^3/uL (4.0-10.0)
[2020-05-09 08:46] LABS: BLOOD UREA NITROGEN 16 MG/DL (7-18); CALCIUM LEVEL 8.2 MG/DL (8.8-10.2); CARBON DIOXIDE LEVEL 28 MEQ/L (21-32); CHLORIDE LEVEL 103 MEQ/L (98-107); CREATININE FOR GFR 0.48 MG/DL (0.55-1.30); GLOMERULAR FILTRATION RATE > 60.0 (>32); GLUCOSE, FASTING 87 MG/DL (70-100); POTASSIUM SERUM 3.8 MEQ/L (3.5-5.1); SODIUM LEVEL 137 MEQ/L (136-145)
[2020-05-09] MEDS: SODIUM CHLORIDE 1 GM TAB PO SCH (08:54)
[2020-05-09] MEDS: ENOXAPARIN 40MG/0.4ML SYRINGE (J1650 PER 10MG) SC SCH (08:54)
[2020-05-09] MEDS: traMADol 50 MG TAB PO SCH ×3 (08:55→15:05)
[2020-05-09] MEDS: LACTOBACILLUS ACIDOPHILUS CAP (BACID) PO SCH ×3 (08:56→20:26)
[2020-05-09] MEDS: ACETAMINOPHEN 500 MG TAB PO SCH ×3 (08:56→20:26)
[2020-05-09] MEDS: LABETALOL 100MG TAB PO SCH ×2 (08:56→20:27)
[2020-05-09] MEDS: ASPIRIN 81MG ENTERIC TABLET PO SCH (08:56)
[2020-05-09] MEDS: POLYVINYL ALCOHOL OPHTH SOLN 15 ML(LIQUITEARS) OU SCH ×2 (08:57→20:27)
[2020-05-09] MEDS: LOSARTAN 50MG TABLET PO SCH ×2 (08:57→20:26)
[2020-05-09] MEDS: PANTOPRAZOLE 40MG TAB (PROTONIX) PO SCH (08:57)
[2020-05-09] MEDS: NABUMETONE 750 MG PO SCH ×2 (08:57→20:28)
[2020-05-09] MEDS: amLODIPine 5 MG TAB PO SCH ×2 (08:57→20:27)
[2020-05-09] MEDS: REMEDY PHYTOPLEX Z-GUARD PASTE 113GM TUBE (FROM STOREROOM PRODUCT) TOP SCH ×3 (08:58→20:27)
[2020-05-09] MEDS ORDERED: COZA50TA PO (12:00)
[2020-05-09] MEDS ORDERED: LABE100T4 PO (12:00)
[2020-05-09] MEDS ORDERED: LEVO100T5 PO (12:00)
[2020-05-09] MEDS ORDERED: ASPI-551 PO (12:00)
[2020-05-09] MEDS ORDERED: AMLO1TAB24 PO (12:00)
[2020-05-09] MEDS ORDERED: TRAM50TA2 PO (12:00)
[2020-05-09] MEDS ORDERED: HYDR50TA PO (12:00)
--- NOTE | 2020-05-09 19:32 | IPNPDOC ---
PM&R Progress Note DATE OF SERVICE: May 07, 2020 Hot Dog Vendor Progress Note Subjective: Patient stating her pain today feels a little bit better. She denies any further burning with urination. REVIEW OF SYSTEMS: The following is a completed review of systems and has been reviewed. Review of systems otherwise unremarkable. PAIN: Patient self reports right buttock pain EYES: No recent vision changes EARS, NOSE, & THROAT: No throat pain, or dysphagia, or rhinorrhea CARDIOVASCULAR: Denies chest pain or palpitations PULMONARY: Denies shortness of breath GASTROINTESTINAL: +loose stools GENITOURINARY:denies dysuria MUSCULOSKELETAL: RLE weakness NEUROLOGICAL:denies tremor or paresthesias HEMATOLOGICAL: denies easy bruising SKIN: denies rash PSYCHIATRIC: Unremarkable All other review of systems found to be negative. PHYSICAL EXAMINATION: VITAL SIGNS: Please see below. GENERAL: Pleasant and cooperative. No acute distress. HEENT: PERRL. Extraocular movements intact. Clear conjunctiva CARDIOVASCULAR: Regular rate and rhythm. No murmurs, rubs, or gallops LUNGS: Clear to auscultation bilaterally. No wheezes. No rhonchi ABDOMEN: Soft, nontender, nondistended. Positive bowel sounds. Normal active bowel sounds NEUROLOGICAL: Alert and oriented times three. Cranial nerves II through XII grossly intact. Sensation grossly intact EXTREMITIES: 5\5 strength bilateral upper extremities. 4\5 strength right lower extremity. 4/5 strength in left lower extremity. ASSESSMENT:85-year-old F with past medical history of chronic low back pain s/p laminectomies who presents status post sacral insufficiency fracture PLAN: 1. PT/OT advance mobility and ADLs, strengthen/stretch/maintain ROM all 4 limbs- ambulating with RW 2. CArdiac- hx of HTN- c/u BP meds, amlodipine and hydralazine which I will increase dosing today for better control -CAD c/u ASA -medicine consulted to assist in overall management 3. Resp- monitor for infection 4. Rheum- hx of RA on nabumetaone 5. 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 Neuro- hx of vertigo-meclizine stopped per family request, concnern voiced by daughter that it may be causing fatigue 7. GI ppx- protonix 8. DVT ppx- lovenox 9. Endo- hypothyroidism- c/u synthroid 10. Hyponatremia- Na 132, improving with NaCl tabs increased over the weekend to 2mg TID and s/p 1L NS -hypokalemia-c/u to replete 11. - s/p course of Levaquin for UPROVIDENCIA RETTGERI UTI 12. Dispo- tbd Allergies Coded Allergies: TAPE (Verified Allergy, Intermediate, SURGICAL TAPE - RASH, 01/17/15) [id number]-Rhb Reductase Inhibitor (Verified Adverse Reaction, Unknown, 04/23/20) muscle aches Vital Signs Vital Signs Date Time Temp Pulse Resp B/P (MAP) Pulse Ox O2 Delivery O2 Flow Rate FiO2 05/09/20 17:03 169/86 05/09/20 17:01 85 05/09/20 15:05 16 05/09/20 14:00 97.6 96 Room Air Laboratory Data CBC/BMP Laboratory Tests 05/09/20 06:18 Labs 24H Laboratory Tests 2 05/09/20 06:18: Immature Granulocyte % (Auto) 0.6, Neutrophils (%) (Auto) 53.0, Lymphocytes (%) (Auto) 26.7, Monocytes (%) (Auto) 15.0H, Eosinophils (%) (Auto) 4.4H, Basophils (%) (Auto) 0.3, Neutrophils # (Auto) 3.6, Lymphocytes # (Auto) 1.8, Monocytes # (Auto) 1.0H, Eosinophils # (Auto) 0.3, Basophils # (Auto) 0.0, Nucleated Red Blood Cells % (auto) 0.0, Anion Gap 6L, Glomerular Filtration Rate > 60.0, Calcium Level 8.2L Microbiology Microbiology 05/02/20 Urine Culture - Final, Complete Providencia Rettgeri Current Medications Current Medications Current Medications Medications (Trade) Dose Ordered Sig/Jessica Route PRN Reason Start Time Stop Time Status Last Admin Dose Admin Acetaminophen (Tylenol Tab) 1,000 mg TID PO 04/25/20 21:00 05/09/20 15:04 Amlodipine Besylate (Norvasc) 5 mg BID PO 04/30/20 09:00 05/09/20 08:57 Amlodipine Besylate (Norvasc) 5 mg DAILY PO 04/26/20 09:00 04/30/20 08:18 DC 04/29/20 04:35 Artificial Tears (Akwa Tears) 1 drop BID OU 04/26/20 14:00 05/09/20 08:57 Aspirin (Ecotrin) 81 mg DAILY PO 04/26/20 09:00 05/09/20 08:56 Docusate Sodium (Colace) 100 mg BID PO 04/25/20 21:00 05/03/20 11:30 DC 05/02/20 20:15 Duloxetine HCl (Cymbalta) 20 mg DAILY PO 04/30/20 09:00 05/02/20 13:02 DC 05/02/20 09:51 Enoxaparin Sodium (Lovenox) 40 mg DAILY SC 04/26/20 09:00 05/09/20 08:54 Gabapentin (Neurontin) 100 mg TID PO 05/03/20 09:00 05/04/20 09:59 DC 05/04/20 07:33 Home Med (Med Rec Complete!) ASDIRECTED XX 04/25/20 15:50 04/25/20 15:52 DC Hydralazine HCl (Apresoline) 25 mg Q6H PO 04/26/20 08:35 04/30/20 18:49 DC 04/30/20 08:37 Hydralazine HCl (Apresoline) 25 mg Q6H PO 05/01/20 00:00 05/02/20 10:43 DC 05/02/20 05:51 Hydralazine HCl (Apresoline) 50 mg Q6H PO 05/02/20 12:00 05/09/20 17:03 Labetalol HCl (Normodyne, Trandate) 100 mg BID PO 04/25/20 21:00 05/09/20 08:56 Lactobacillus Acidophilus (Bacid) 1 ea TID PO 05/03/20 09:00 05/09/20 15:04 Levofloxacin (Levaquin) 750 mg DAILY@06 PO 05/03/20 06:00 05/05/20 06:01 DC 05/05/20 06:07 Levothyroxine Sodium (Synthroid) 100 mcg DAILY@06 PO 04/26/20 06:00 05/09/20 05:48 Lidocaine (Lidoderm Patch) 1 patch DAILY TD 04/30/20 09:00 05/02/20 13:02 DC 05/02/20 09:53 Loperamide HCl (Imodium) 2 mg ASDIRECTED PRN PO DIARRHEA 05/03/20 09:35 05/05/20 16:48 Losartan Potassium (Cozaar) 50 mg BID PO 04/25/20 21:00 05/09/20 08:57 Meclizine HCl (Antivert) 25 mg TID PO 04/25/20 21:00 05/04/20 09:33 DC 05/03/20 20:14 Non-Formulary Medication ( See Comment Field Below ) REMOVE LIDODERM PATCH DAILY@21 XX 04/30/20 21:00 05/03/20 08:01 DC 05/02/20 21:01 Oxycodone HCl (Roxicodone, Oxyir) 2.5 mg TID@0800,1200,1600 PO 04/30/20 16:00 05/01/20 11:00 DC 05/01/20 07:11 Pantoprazole Sodium (Protonix) 40 mg DAILY PO 04/26/20 09:00 05/09/20 08:57 Patient Own Medication (Patient'S Own Med) Nabumetone 750mg TA... BID PO 04/25/20 21:00 05/09/20 08:57 Patient Own Medication (Patient'S Own Med) systane ultra eye drops... ASDIRECTED OU 04/26/20 12:20 04/26/20 12:41 DC Prednisone (Deltasone) 40 mg DAILY PO 04/26/20 09:00 04/26/20 14:12 DC 04/26/20 09:14 Senna (Senokot) 1 tab QHS PO 04/25/20 21:00 05/03/20 11:30 DC 05/02/20 20:15 Sodium Chloride 1,000 ml @ 60 mls/hr [id number] IV 05/04/20 10:00 05/05/20 02:39 DC 05/04/20 10:26 Sodium Chloride (Sodium Chloride) 1 gm TID PO 05/03/20 09:00 05/04/20 09:30 DC 05/04/20 07:34 Sodium Chloride (Sodium Chloride) 2 gm TID PO 05/04/20 16:00 05/09/20 09:27 DC 05/09/20 08:54 Tramadol HCl (Ultram) 25 mg Q4HP PRN PO MODERATE PAIN (PS 5-7) 04/25/20 16:30 04/26/20 10:52 DC Tramadol HCl (Ultram) 25 mg Q6HP PRN PO MODERATE PAIN (PS 5-7) 04/26/20 10:50 04/30/20 16:49 DC 04/28/20 00:28 Tramadol HCl (Ultram) 25 mg TID PO 04/26/20 10:50 04/30/20 15:42 DC 04/30/20 08:40 Tramadol HCl (Ultram) 50 mg DAILY@0800,1200,1600 PO 05/01/20 12:00 05/09/20 15:05 Tramadol HCl (Ultram) 50 mg QHS PRN PO MODERATE PAIN (PS 5-7) 05/01/20 11:00 05/05/20 20:21 Tramadol HCl (Ultram) 50 mg TID PO 04/30/20 16:00 04/30/20 16:49 DC 04/30/20 15:58 MELANIE NUNO MD May 09, 2020 19:32
--- NOTE | 2020-05-09 19:34 | IPNPDOC ---
PM&R Progress Note DATE OF SERVICE: May 08, 2020 Part Maker Progress Note Subjective: Patient stating her stools are no longer loose and she had a good day in therapy. REVIEW OF SYSTEMS: The following is a completed review of systems and has been reviewed. Review of systems otherwise unremarkable. PAIN: Patient self reports right buttock pain EYES: No recent vision changes EARS, NOSE, & THROAT: No throat pain, or dysphagia, or rhinorrhea CARDIOVASCULAR: Denies chest pain or palpitations PULMONARY: Denies shortness of breath GASTROINTESTINAL: denies diarrhea/constipation GENITOURINARY:denies dysuria MUSCULOSKELETAL: RLE weakness NEUROLOGICAL:denies tremor or paresthesias HEMATOLOGICAL: denies easy bruising SKIN: denies rash PSYCHIATRIC: Unremarkable All other review of systems found to be negative. PHYSICAL EXAMINATION: VITAL SIGNS: Please see below. GENERAL: Pleasant and cooperative. No acute distress. HEENT: PERRL. Extraocular movements intact. Clear conjunctiva CARDIOVASCULAR: Regular rate and rhythm. No murmurs, rubs, or gallops LUNGS: Clear to auscultation bilaterally. No wheezes. No rhonchi ABDOMEN: Soft, nontender, nondistended. Positive bowel sounds. Normal active bowel sounds NEUROLOGICAL: Alert and oriented times three. Cranial nerves II through XII grossly intact. Sensation grossly intact EXTREMITIES: 5\5 strength bilateral upper extremities. 4\5 strength right lower extremity. 4/5 strength in left lower extremity. ASSESSMENT:85-year-old F with past medical history of chronic low back pain s/p laminectomies who presents status post sacral insufficiency fracture PLAN: 1. PT/OT advance mobility and ADLs, strengthen/stretch/maintain ROM all 4 limbs- ambulating with RW 2. CArdiac- hx of HTN- c/u BP meds, amlodipine and hydralazine -CAD c/u ASA -medicine consulted to assist in overall management 3. Resp- monitor for infection 4. Rheum- hx of RA on nabumetaone 5. 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 Neuro- hx of vertigo-meclizine stopped per family request, concnern voiced by daughter that it may be causing fatigue 7. GI ppx- protonix 8. DVT ppx- lovenox 9. Endo- hypothyroidism- c/u synthroid 10. Hyponatremia- Na 135, improving with NaCl tabs increased over the weekend to 2mg TID and s/p 1L NS -hypokalemia-resolved 11. - s/p course of Levaquin for UPROVIDENCIA RETTGERI UTI 12. Dispo- 05-10-20 to home, progressing towards goals Allergies Coded Allergies: TAPE (Verified Allergy, Intermediate, SURGICAL TAPE - RASH, 01/17/15) [id number]-[id number] Reductase Inhibitor (Verified Adverse Reaction, Unknown, 04/23/20) muscle aches Vital Signs Vital Signs Date Time Temp Pulse Resp B/P (MAP) Pulse Ox O2 Delivery O2 Flow Rate FiO2 05/09/20 17:03 169/86 05/09/20 17:01 85 05/09/20 15:05 16 05/09/20 14:00 97.6 96 Room Air Laboratory Data CBC/BMP Laboratory Tests 05/09/20 06:18 Labs 24H Laboratory Tests 2 05/09/20 06:18: Immature Granulocyte % (Auto) 0.6, Neutrophils (%) (Auto) 53.0, Lymphocytes (%) (Auto) 26.7, Monocytes (%) (Auto) 15.0H, Eosinophils (%) (Auto) 4.4H, Basophils (%) (Auto) 0.3, Neutrophils # (Auto) 3.6, Lymphocytes # (Auto) 1.8, Monocytes # (Auto) 1.0H, Eosinophils # (Auto) 0.3, Basophils # (Auto) 0.0, Nucleated Red Blood Cells % (auto) 0.0, Anion Gap 6L, Glomerular Filtration Rate > 60.0, Calcium Level 8.2L Microbiology Microbiology 05/02/20 Urine Culture - Final, Complete Providencia Rettgeri Current Medications Current Medications Current Medications Medications (Trade) Dose Ordered Sig/Jessica Route PRN Reason Start Time Stop Time Status Last Admin Dose Admin Acetaminophen (Tylenol Tab) 1,000 mg TID PO 04/25/20 21:00 05/09/20 15:04 Amlodipine Besylate (Norvasc) 5 mg BID PO 04/30/20 09:00 05/09/20 08:57 Amlodipine Besylate (Norvasc) 5 mg DAILY PO 04/26/20 09:00 04/30/20 08:18 DC 04/29/20 04:35 Artificial Tears (Akwa Tears) 1 drop BID OU 04/26/20 14:00 05/09/20 08:57 Aspirin (Ecotrin) 81 mg DAILY PO 04/26/20 09:00 05/09/20 08:56 Docusate Sodium (Colace) 100 mg BID PO 04/25/20 21:00 05/03/20 11:30 DC 05/02/20 20:15 Duloxetine HCl (Cymbalta) 20 mg DAILY PO 04/30/20 09:00 05/02/20 13:02 DC 05/02/20 09:51 Enoxaparin Sodium (Lovenox) 40 mg DAILY SC 04/26/20 09:00 05/09/20 08:54 Gabapentin (Neurontin) 100 mg TID PO 05/03/20 09:00 05/04/20 09:59 DC 05/04/20 07:33 Home Med (Med Rec Complete!) ASDIRECTED XX 04/25/20 15:50 04/25/20 15:52 DC Hydralazine HCl (Apresoline) 25 mg Q6H PO 04/26/20 08:35 04/30/20 18:49 DC 04/30/20 08:37 Hydralazine HCl (Apresoline) 25 mg Q6H PO 05/01/20 00:00 05/02/20 10:43 DC 05/02/20 05:51 Hydralazine HCl (Apresoline) 50 mg Q6H PO 05/02/20 12:00 05/09/20 17:03 Labetalol HCl (Normodyne, Trandate) 100 mg BID PO 04/25/20 21:00 05/09/20 08:56 Lactobacillus Acidophilus (Bacid) 1 ea TID PO 05/03/20 09:00 05/09/20 15:04 Levofloxacin (Levaquin) 750 mg DAILY@06 PO 05/03/20 06:00 05/05/20 06:01 DC 05/05/20 06:07 Levothyroxine Sodium (Synthroid) 100 mcg DAILY@06 PO 04/26/20 06:00 05/09/20 05:48 Lidocaine (Lidoderm Patch) 1 patch DAILY TD 04/30/20 09:00 05/02/20 13:02 DC 05/02/20 09:53 Loperamide HCl (Imodium) 2 mg ASDIRECTED PRN PO DIARRHEA 05/03/20 09:35 05/05/20 16:48 Losartan Potassium (Cozaar) 50 mg BID PO 04/25/20 21:00 05/09/20 08:57 Meclizine HCl (Antivert) 25 mg TID PO 04/25/20 21:00 05/04/20 09:33 DC 05/03/20 20:14 Non-Formulary Medication ( See Comment Field Below ) REMOVE LIDODERM PATCH DAILY@21 XX 04/30/20 21:00 05/03/20 08:01 DC 05/02/20 21:01 Oxycodone HCl (Roxicodone, Oxyir) 2.5 mg TID@0800,1200,1600 PO 04/30/20 16:00 05/01/20 11:00 DC 05/01/20 07:11 Pantoprazole Sodium (Protonix) 40 mg DAILY PO 04/26/20 09:00 05/09/20 08:57 Patient Own Medication (Patient'S Own Med) Nabumetone 750mg TA... BID PO 04/25/20 21:00 05/09/20 08:57 Patient Own Medication (Patient'S Own Med) systane ultra eye drops... ASDIRECTED OU 04/26/20 12:20 04/26/20 12:41 DC Prednisone (Deltasone) 40 mg DAILY PO 04/26/20 09:00 04/26/20 14:12 DC 04/26/20 09:14 Senna (Senokot) 1 tab QHS PO 04/25/20 21:00 05/03/20 11:30 DC 05/02/20 20:15 Sodium Chloride 1,000 ml @ 60 mls/hr [id number] IV 05/04/20 10:00 05/05/20 02:39 DC 05/04/20 10:26 Sodium Chloride (Sodium Chloride) 1 gm TID PO 05/03/20 09:00 05/04/20 09:30 DC 05/04/20 07:34 Sodium Chloride (Sodium Chloride) 2 gm TID PO 05/04/20 16:00 05/09/20 09:27 DC 05/09/20 08:54 Tramadol HCl (Ultram) 25 mg Q4HP PRN PO MODERATE PAIN (PS 5-7) 04/25/20 16:30 04/26/20 10:52 DC Tramadol HCl (Ultram) 25 mg Q6HP PRN PO MODERATE PAIN (PS 5-7) 04/26/20 10:50 04/30/20 16:49 DC 04/28/20 00:28 Tramadol HCl (Ultram) 25 mg TID PO 04/26/20 10:50 04/30/20 15:42 DC 04/30/20 08:40 Tramadol HCl (Ultram) 50 mg DAILY@0800,1200,1600 PO 05/01/20 12:00 05/09/20 15:05 Tramadol HCl (Ultram) 50 mg QHS PRN PO MODERATE PAIN (PS 5-7) 05/01/20 11:00 05/05/20 20:21 Tramadol HCl (Ultram) 50 mg TID PO 04/30/20 16:00 04/30/20 16:49 DC 04/30/20 15:58 MELANIE NUNO MD May 09, 2020 19:34
--- NOTE | 2020-05-09 19:36 | IPNPDOC ---
PM&R Progress Note DATE OF SERVICE: May 09, 2020 Package Winder Progress Note Subjective: Patient seen in therapy stating she is not having problems going to the bathroom and was able to offload her bottom to relieve sacral pain. REVIEW OF SYSTEMS: The following is a completed review of systems and has been reviewed. Review of systems otherwise unremarkable. PAIN: Patient self reports right buttock pain EYES: No recent vision changes EARS, NOSE, & THROAT: No throat pain, or dysphagia, or rhinorrhea CARDIOVASCULAR: Denies chest pain or palpitations PULMONARY: Denies shortness of breath GASTROINTESTINAL: denies diarrhea/constipation GENITOURINARY:denies dysuria MUSCULOSKELETAL: RLE weakness NEUROLOGICAL:denies tremor or paresthesias HEMATOLOGICAL: denies easy bruising SKIN: denies rash PSYCHIATRIC: Unremarkable All other review of systems found to be negative. PHYSICAL EXAMINATION: VITAL SIGNS: Please see below. GENERAL: Pleasant and cooperative. No acute distress. HEENT: PERRL. Extraocular movements intact. Clear conjunctiva CARDIOVASCULAR: Regular rate and rhythm. No murmurs, rubs, or gallops LUNGS: Clear to auscultation bilaterally. No wheezes. No rhonchi ABDOMEN: Soft, nontender, nondistended. Positive bowel sounds. Normal active bowel sounds NEUROLOGICAL: Alert and oriented times three. Cranial nerves II through XII grossly intact. Sensation grossly intact EXTREMITIES: 5\5 strength bilateral upper extremities. 4\5 strength right lower extremity. 4/5 strength in left lower extremity. ASSESSMENT:85-year-old F with past medical history of chronic low back pain s/p laminectomies who presents status post sacral insufficiency fracture PLAN: 1. PT/OT advance mobility and ADLs, strengthen/stretch/maintain ROM all 4 limbs- ambulating with RW 2. CArdiac- hx of HTN- c/u BP meds, amlodipine and hydralazine -CAD c/u ASA -medicine consulted to assist in overall management 3. Resp- monitor for infection 4. Rheum- hx of RA on nabumetaone 5. 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 Neuro- hx of vertigo-meclizine stopped per family request, eliasnern voiced by daughter that it may be causing fatigue 7. GI ppx- protonix 8. DVT ppx- lovenox 9. Endo- hypothyroidism- c/u synthroid 10. Hyponatremia- Na 137, will d/c salt tabs and recheck tomorrow -hypokalemia-resolved 11. - s/p course of Levaquin for UPROVIDENCIA RETTGERI UTI 12. Dispo- 05-10-20 to home, progressing towards goals-discussed patient's hospital course with daughter on the phone Allergies Coded Allergies: TAPE (Verified Allergy, Intermediate, SURGICAL TAPE - RASH, 01/17/15) [id number]-Bqg Reductase Inhibitor (Verified Adverse Reaction, Unknown, 04/23/20) muscle aches Vital Signs Vital Signs Date Time Temp Pulse Resp B/P (MAP) Pulse Ox O2 Delivery O2 Flow Rate FiO2 05/09/20 17:03 169/86 05/09/20 17:01 85 05/09/20 15:05 16 05/09/20 14:00 97.6 96 Room Air Laboratory Data CBC/BMP Laboratory Tests 05/09/20 06:18 Labs 24H Laboratory Tests 2 05/09/20 06:18: Immature Granulocyte % (Auto) 0.6, Neutrophils (%) (Auto) 53.0, Lymphocytes (%) (Auto) 26.7, Monocytes (%) (Auto) 15.0H, Eosinophils (%) (Auto) 4.4H, Basophils (%) (Auto) 0.3, Neutrophils # (Auto) 3.6, Lymphocytes # (Auto) 1.8, Monocytes # (Auto) 1.0H, Eosinophils # (Auto) 0.3, Basophils # (Auto) 0.0, Nucleated Red Blood Cells % (auto) 0.0, Anion Gap 6L, Glomerular Filtration Rate > 60.0, Calcium Level 8.2L Microbiology Microbiology 05/02/20 Urine Culture - Final, Complete Providencia Rettgeri Current Medications Current Medications Current Medications Medications (Trade) Dose Ordered Sig/Jessica Route PRN Reason Start Time Stop Time Status Last Admin Dose Admin Acetaminophen (Tylenol Tab) 1,000 mg TID PO 04/25/20 21:00 05/09/20 15:04 Amlodipine Besylate (Norvasc) 5 mg BID PO 04/30/20 09:00 05/09/20 08:57 Amlodipine Besylate (Norvasc) 5 mg DAILY PO 04/26/20 09:00 04/30/20 08:18 DC 04/29/20 04:35 Artificial Tears (Akwa Tears) 1 drop BID OU 04/26/20 14:00 05/09/20 08:57 Aspirin (Ecotrin) 81 mg DAILY PO 04/26/20 09:00 05/09/20 08:56 Docusate Sodium (Colace) 100 mg BID PO 04/25/20 21:00 05/03/20 11:30 DC 05/02/20 20:15 Duloxetine HCl (Cymbalta) 20 mg DAILY PO 04/30/20 09:00 05/02/20 13:02 DC 05/02/20 09:51 Enoxaparin Sodium (Lovenox) 40 mg DAILY SC 04/26/20 09:00 05/09/20 08:54 Gabapentin (Neurontin) 100 mg TID PO 05/03/20 09:00 05/04/20 09:59 DC 05/04/20 07:33 Home Med (Med Rec Complete!) ASDIRECTED XX 04/25/20 15:50 04/25/20 15:52 DC Hydralazine HCl (Apresoline) 25 mg Q6H PO 04/26/20 08:35 04/30/20 18:49 DC 04/30/20 08:37 Hydralazine HCl (Apresoline) 25 mg Q6H PO 05/01/20 00:00 05/02/20 10:43 DC 05/02/20 05:51 Hydralazine HCl (Apresoline) 50 mg Q6H PO 05/02/20 12:00 05/09/20 17:03 Labetalol HCl (Normodyne, Trandate) 100 mg BID PO 04/25/20 21:00 05/09/20 08:56 Lactobacillus Acidophilus (Bacid) 1 ea TID PO 05/03/20 09:00 05/09/20 15:04 Levofloxacin (Levaquin) 750 mg DAILY@06 PO 05/03/20 06:00 05/05/20 06:01 DC 05/05/20 06:07 Levothyroxine Sodium (Synthroid) 100 mcg DAILY@06 PO 04/26/20 06:00 05/09/20 05:48 Lidocaine (Lidoderm Patch) 1 patch DAILY TD 04/30/20 09:00 05/02/20 13:02 DC 05/02/20 09:53 Loperamide HCl (Imodium) 2 mg ASDIRECTED PRN PO DIARRHEA 05/03/20 09:35 05/05/20 16:48 Losartan Potassium (Cozaar) 50 mg BID PO 04/25/20 21:00 05/09/20 08:57 Meclizine HCl (Antivert) 25 mg TID PO 04/25/20 21:00 05/04/20 09:33 DC 05/03/20 20:14 Non-Formulary Medication ( See Comment Field Below ) REMOVE LIDODERM PATCH DAILY@21 XX 04/30/20 21:00 05/03/20 08:01 DC 05/02/20 21:01 Oxycodone HCl (Roxicodone, Oxyir) 2.5 mg TID@0800,1200,1600 PO 04/30/20 16:00 05/01/20 11:00 DC 05/01/20 07:11 Pantoprazole Sodium (Protonix) 40 mg DAILY PO 04/26/20 09:00 05/09/20 08:57 Patient Own Medication (Patient'S Own Med) Nabumetone 750mg TA... BID PO 04/25/20 21:00 05/09/20 08:57 Patient Own Medication (Patient'S Own Med) systane ultra eye drops... ASDIRECTED OU 04/26/20 12:20 04/26/20 12:41 DC Prednisone (Deltasone) 40 mg DAILY PO 04/26/20 09:00 04/26/20 14:12 DC 04/26/20 09:14 Senna (Senokot) 1 tab QHS PO 04/25/20 21:00 05/03/20 11:30 DC 05/02/20 20:15 Sodium Chloride 1,000 ml @ 60 mls/hr [id number] IV 05/04/20 10:00 05/05/20 02:39 DC 05/04/20 10:26 Sodium Chloride (Sodium Chloride) 1 gm TID PO 05/03/20 09:00 05/04/20 09:30 DC 05/04/20 07:34 Sodium Chloride (Sodium Chloride) 2 gm TID PO 05/04/20 16:00 05/09/20 09:27 DC 05/09/20 08:54 Tramadol HCl (Ultram) 25 mg Q4HP PRN PO MODERATE PAIN (PS 5-7) 04/25/20 16:30 04/26/20 10:52 DC Tramadol HCl (Ultram) 25 mg Q6HP PRN PO MODERATE PAIN (PS 5-7) 04/26/20 10:50 04/30/20 16:49 DC 04/28/20 00:28 Tramadol HCl (Ultram) 25 mg TID PO 04/26/20 10:50 04/30/20 15:42 DC 04/30/20 08:40 Tramadol HCl (Ultram) 50 mg DAILY@0800,1200,1600 PO 05/01/20 12:00 05/09/20 15:05 Tramadol HCl (Ultram) 50 mg QHS PRN PO MODERATE PAIN (PS 5-7) 05/01/20 11:00 05/05/20 20:21 Tramadol HCl (Ultram) 50 mg TID PO 04/30/20 16:00 04/30/20 16:49 DC 04/30/20 15:58 MELANIE NUNO MD May 09, 2020 19:36
[2020-05-09] MEDS: traMADol 50 MG TAB PO PRN (20:26)
[2020-05-10 05:42] VITALS: BP 131/68
[2020-05-10] MEDS: **hydrALAZINE** 50 MG TAB PO SCH ×2 (05:42→12:00)
[2020-05-10] MEDS: LEVOTHYROXINE 100MCG TABLET (0.1MG) PO SCH (05:46)
[2020-05-10 07:24] LABS: BLOOD UREA NITROGEN 10 MG/DL (7-18); CALCIUM LEVEL 8.3 MG/DL (8.8-10.2); CARBON DIOXIDE LEVEL 28 MEQ/L (21-32); CHLORIDE LEVEL 101 MEQ/L (98-107); CREATININE FOR GFR 0.52 MG/DL (0.55-1.30); GLOMERULAR FILTRATION RATE > 60.0 (>32); GLUCOSE, FASTING 96 MG/DL (70-100); POTASSIUM SERUM 3.5 MEQ/L (3.5-5.1); SODIUM LEVEL 136 MEQ/L (136-145)
[2020-05-10] MEDS: traMADol 50 MG TAB PO SCH ×2 (08:00→12:04)
[2020-05-10] MEDS: LACTOBACILLUS ACIDOPHILUS CAP (BACID) PO SCH (09:13)
[2020-05-10] MEDS: amLODIPine 5 MG TAB PO SCH (09:14)
[2020-05-10] MEDS: LABETALOL 100MG TAB PO SCH (09:14)
[2020-05-10] MEDS: PANTOPRAZOLE 40MG TAB (PROTONIX) PO SCH (09:14)
[2020-05-10] MEDS: ASPIRIN 81MG ENTERIC TABLET PO SCH (09:15)
[2020-05-10] MEDS: ACETAMINOPHEN 500 MG TAB PO SCH (09:16)
[2020-05-10] MEDS: LOSARTAN 50MG TABLET PO SCH (09:16)
[2020-05-10] MEDS: ENOXAPARIN 40MG/0.4ML SYRINGE (J1650 PER 10MG) SC SCH (09:17)
[2020-05-10] MEDS: NABUMETONE 750 MG PO SCH (09:17)
[2020-05-10] MEDS: REMEDY PHYTOPLEX Z-GUARD PASTE 113GM TUBE (FROM STOREROOM PRODUCT) TOP SCH (09:17)
[2020-05-10] MEDS: POLYVINYL ALCOHOL OPHTH SOLN 15 ML(LIQUITEARS) OU SCH (09:17)
--- NOTE | 2020-05-10 11:13 | PMRDS ---
DISCHARGE SUMMARY DATE OF ADMISSION: 04/25/2020 DATE OF DISCHARGE: 05/10/2020 CHIEF COMPLAINT/DISCHARGE DIAGNOSIS: Sacral fracture. HISTORY OF PRESENT ILLNESS: This is 85-year-old female with a past medical history of hypertension, vertigo, hypothyroidism, chronic low back pain, status post laminectomy, being treated for sciatica by her primary care physician with steroids, muscle relaxants and [place] presents to [facility] 04[facility]2020 with difficulty walking and worsening low back and buttock pain. A lumbar MRI was done showing "There are dense degenerative spondylosis changes. Post-laminectomy changes are noted in the right at L3-L4 and L4-L5. There is a moderate degree of central canal stenosis at L2-L3. Neural foraminal narrowing is noted as above. These changes appear to be chronicsubacute finding of right sacral and right iliac insufficiency fractures with associated edema. There was a second sacral fracture in the midline as well." She was evaluated by orthopedics who recommended follow up with the outpatient spine surgeon and pain clinic. She had leukocytosis likely due to steroid use, anemia and elevated blood pressure. She was evaluated by therapy, noted to have impairment in mobility, activities of daily living (ADLs) and deemed medically appropriate for discharge to acute rehabilitation unit (ARU) on 04/25/2020. PAST MEDICAL HISTORY: As per history of present illness (HPI). HOSPITAL COURSE: The patient was admitted and enrolled in a comprehensive physical therapy/occupational therapy (PT/OT) program. She received 24-hour nursing supervision and weekly team meetings were held to discuss her progress. Patient was tapered off of her steroids and continued on Tylenol and tramadol for her pain. 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 The patient had hyponatremia, which was treated with salt tabs and IV fluids with overall resolution. She was also treated for a urinary tract infection with Levaquin and her blood pressure medications were adjusted. She made significant and steady gains in therapy and was deemed medically and functionally stable to return home with family. DISCHARGE MEDICATIONS: As per instructions. FUNCTIONAL HISTORY ON DISCHRAGE: The patient was modified independent to independent for functional transfers and ambulation. Thank you for this referral.
== END 2020-05-10 12:25 | disposition home health service (06) | DRG 560 ==
LOC: M PM&R 14:40
PROVIDERS: ADMIT Physical Medicine & Rehabilitation; ATTEND Physical Medicine & Rehabilitation
DX: M84.454D Pathological fracture, pelvis, subsequent encounter for fracture with routine healing (principal); E87.1 Hypo-osmolality and hyponatremia; N39.0 Urinary tract infection, site not specified; Z79.899 Other long term (current) drug therapy; Z79.82 Long term (current) use of aspirin; I10 Essential (primary) hypertension; E03.9 Hypothyroidism, unspecified; M96.1 Postlaminectomy syndrome, not elsewhere classified; Z88.8 Allergy status to other drugs, medicaments and biological substances; E87.6 Hypokalemia

== ENCOUNTER → 2024-12-05 | Outpatient (REF) ==
[~2024-12-05] MED LIST changes: +ASPI-551 PO; +HYDR50TA47 PO; -LABE100T4 PO; +LABE100T6 PO; +LOSA-528 PO; +LOSA100T46 PO; -LOSA100T50 PO; -NABU-53 PO; +NABU-73 PO; +TIZA10TA PO; -TIZA4TAB4 PO
[2024-12-05 14:10] LABS: PLATELET COUNT, AUTOMATED 380 10^3/uL (150-450)
[2024-12-05 14:39] LABS: CALCIUM LEVEL 9.2 MG/DL (8.3-10.6); CARBON DIOXIDE LEVEL 24.0 MMOL/L (20-31); CHLORIDE LEVEL 100.0 MMOL/L (98-107); CREATININE FOR GFR 0.72 MG/DL (0.55-1.30); GLOMERULAR FILTRATION RATE 79.9 (>32); POTASSIUM SERUM 4.3 MMOL/L (3.5-5.1); SODIUM LEVEL 138.0 MMOL/L (136-145)
[2024-12-05 14:40] LABS: IRON (FE) 90.0 UG/DL (50-170); PERCENT SATURATION 30.7 % (13.2-45.0)
[2024-12-05 14:41] LABS: VITAMIN B12 LEVEL 406.0 PG/ML (211-911)
== END ==
PROVIDERS: ATTEND Physician Assistant
DX: I10 Essential (primary) hypertension (principal)

== ENCOUNTER → 2024-12-12 | Outpatient (REF) ==
[2024-12-12 11:02] LABS: PLATELET COUNT, AUTOMATED 344 10^3/uL (150-450)
[2024-12-12 11:24] LABS: CALCIUM LEVEL 9.0 MG/DL (8.3-10.6); CARBON DIOXIDE LEVEL 28.0 MMOL/L (20-31); CHLORIDE LEVEL 100.0 MMOL/L (98-107); CREATININE FOR GFR 0.65 MG/DL (0.55-1.30); GLOMERULAR FILTRATION RATE 84.1 (>32); POTASSIUM SERUM 4.4 MMOL/L (3.5-5.1); SODIUM LEVEL 137.0 MMOL/L (136-145)
== END ==
PROVIDERS: ATTEND Physician Assistant
DX: I10 Essential (primary) hypertension (principal); E03.9 Hypothyroidism, unspecified

== ENCOUNTER → 2024-12-30 | Outpatient (REF) | payer MEDICARE ==
[~2024-12-30] MED LIST changes: +BARIUM SULFATE 700 MG TABLET As Ordered ONE; +E-Z-PAQUE 96% w/w SUSP 176 GM BTL As Ordered ONE; +VARIBAR NECTAR 40% w/v 240ML SUSP BTL As Ordered ONE; +VARIBAR PUDDING 40% w/v 230ML TUBE As Ordered ONE
== END ==
LOC: M RAD 11:30 → EDSTATUS 11:30
PROVIDERS: ATTEND Internal Medicine
DX: R13.10 Dysphagia, unspecified (principal)